=== PATIENT | female | born 1985 | race Caucasian/White ===

== ENCOUNTER → 2017-09-26 | Outpatient (CLI) | payer BC | LOC: FIMAGING 18:41 | PROVIDERS: ATTEND Physical Medicine & Rehabilitation | DX: M54.5 Low back pain (principal); R53.1 Weakness ==

== ENCOUNTER 2018-09-28 07:55 | Inpatient (IN) | payer BC ==
--- NOTE | 2018-09-28 08:00 | EDPHY ---
HPI/HX/ROS/PE/MDM Narrative: CHIEF COMPLAINT: AMS, abdominal pain, fever HPI: The patient is an anticoagulated 33 y/o female who arrives emergently via EMS from home with acute onset AMS preceded by a week of malaise, "low-grade fever," and abdominal pain. History comes primarily from due to patient' s altered mentation. She has a history of a CVA with some residual dysphasia and antiphospholipid antibody syndrome for which she is on Coumadin. She was evaluated at [facility] for abdominal pain, nausea, and vomiting on 09/23/18, 5 days ago. An adnexal US was negative at that time and an abdominal CT showed some inflammation in the right adnexa and she was given a script for hydrocodone, which helped her abdominal pain. Her INR was greater than 8 at that time and received vitamin K for this per her . 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 Her notes she's also had constipation and back pain throughout this illness and after seeing her PCP 2 days ago on Monday she tried taking a laxative. She subsequently vomited several times that day, but this resolved after treatment with an antiemetic. Symptoms remitted until yesterday afternoon when the back pain returned. She never complained of dysuria, but did mention some "bladder fullness" to her . Last night, her noticed her baseline dysphasia worsened slightly and around 02:00 this morning she woke complaining of back pain and feeling like she needed to have a bowel movement, though she did not get out of bed. He denies any obvious unilateral weakness or facial droop at this time and she did not complain of a headache. She fell asleep briefly and then woke again and "was in this weird loop" complaining of being cold and "not working" repeatedly to her . He mentions her dysphasia can worsen when she is fatigued, but he's never seen her confused like this previously. These symptoms persisted and he decided to take her to the ED, but was unable to get her up so he contacted EMS. She had difficulty following commands with both her and EMS. EMS noted her initial BP was 70/40 and she was hot and diaphoretic to the touch. They placed an IO due to difficulty obtaining IV access and she received 1L NS en route with improvement in her BP to 90 systolic. She complained of groin pain and feeling cold to EMS during transport, but generally was unable to communicate much with the crew. She currently complains of feeling cold, but is unable to contribute to history, answer questions, or follow commands. She restarted her Coumadin yesterday per . is not ill with any similar symptoms. REVIEW OF SYSTEMS: A comprehensive 10 system review of systems is otherwise negative aside from elements mentioned in the history of present illness. PMH: Stroke with some lasting dysphasia 6 years ago, hypothyroidism, antiphospholipid antibody syndrome - Coumadin. Prior medical records reviewed via [facility] including 09/23/18 visit at [facility]. SOCIAL HISTORY: . Lives in [place]. PCP: Dr. Victor. Hospitality Coordinator: Dr. Hinojosa. PHYSICAL EXAM: Vitals: HR 145, SpO2 88%, BP 98/74, 38.1C axillary temperature General:Patient is altered, difficulty following commands, moaning. ENT:Eyes are normal to inspection. ENT inspection normal. Neck: Normal inspection. Full range of motion. Respiratory:No respiratory distress. Breath sounds normal bilaterally. Cardiovascular: Tachycardic regular rate and rhythm. Strong peripheral pulses. Normal cap refill. Abdomen:The abdomen has mild diffuse tenderness to palpation, unable to localize , no severe tenderness or distension noted. There are no peritoneal signs. Back: Normal to inspection. No tenderness to palpation. Skin: Normal color. No rash. Warm and dry. Extremities: Normal appearance. Full range of motion. Neuro: Confused, difficulty following commands, movement in all extremities, face is symmetric. Unable to perform full neuro exam secondary to presentation. ED Course: 0755: Met EMS upon arrival and took report. This is an anticoagulated 33 y/o female with a history of CVA and antiphospholipid antibody syndrome who presents with a few-hour history of altered mentation in the setting of a one- week history of abdominal pain, nausea, vomiting, constipation, and fever. She is unable to follow commands on assessment, but has a patent airway and is moving all extremities. She is hypotensive, tachycardic, febrile, and hypoxemic. She has mild diffuse abdominal tenderness. Presentation is concerning for many etiologies including sepsis, major abdominal pathology, stroke, electrolyte abnormalities, and infectious causes. Plan for IV, sepsis labs, UA, flu swab, fluid resuscitation, chest and abdominal x-rays, and once able to lie still will proceed with head/chest/abdominal CTs. Will follow closely with frequent reassessments. Initial labs show normal lactate, normal pH, INR 1.4. 15mg IV Toradol ordered for fever and pain. CHEM shows hyponatremia with sodium of 120 and hypokalemia at 2.8. Will recheck for accuracy with ISTAT. WBC is normal. Hct slightly low at 37.9. 0854: Confirmed patient is hyponatremic. Remaining fluid bolus held. Nephrology paged. Chest x-ray: negative Abdominal x-ray: negative 0912: Consulted with Dr. Brown, software validation technician. She recommends no more than 2L IV NS bolus, then reducing to 200mL/hour drip. Will repeat BMP. 0914: Reevaluated patient and discussed findings with . 0925: Spoke with hospitalist service. Dr. Pedraza accepts admission. CTs pending. 0955: 0.5mg IV Ativan ordered for agitation. 1015: Repeat sodium is still 120. Lactate has improved. TSH mildly elevated. 1025: Molina placed. Patient is tachycardic 150 and her BP is now 116/55. Additional 1mg IV Ativan ordered. 1038: Head CT: nothing acute, old stroke Chest CTA: no PE, possible early pulmonary edema Abdominal CT: likely bilateral adrenal hemorrhages, right side worse than left 1047: Consulted with Dr. Pedraza and updated him on CT report. 4mg IV Decadron ordered. Critical care time spent by me, Dr. Gregory, exclusively with this patient was 60 minutes, exclusive of PA time and exclusive of procedures. The organ system at risk was multisystem. Time spent in serial assessments of the patient, discussion with patient's family, consideration of interventions, hospitalist and nephrology consultations, and review of imaging and labs. MDM: This patient presents with a complex set of signs and symptoms, concerning for sepsis, CVA, abdominal emergency and severe electrolyte imbalance. Ultimately, I think her primary issue is adrenal hemorrhage of unknown etiology, which has now resulted in adrenal insufficiency. I cannot exclude primary infectious etiology at this time, but this looks increasingly unlikely given normalizing lactate and other etiology for hypotension. She is critically ill and will require ICU care. - Data Points Imaging Results: Imaging Impressions Abdomen X-Ray 09/28/18 08:12 Impression: 1. Negative supine and upright abdominal radiographs. Chest X-Ray 09/28/18 08:13 Impression: Negative portable chest. Diminished lung volumes. Abdomen CT 09/28/18 08:58 Impression: 1. Bilateral adrenal masses as above, hyperdense, with primary differential being acute adrenal hemorrhages. This can be further followed by subsequent ultrasound, CT, or MRI. 2. Simple right renal cortical cyst. 3. Free fluid in the pelvis, likely from hydration. 4. Otherwise, normal CT scan of the abdomen and pelvis. Findings and recommendations discussed with Ric Gregory MD at 10:38 a.m. on 09/28/2018. Final report concurs with initial preliminary interpretation. Head CT 09/28/18 08:58 Impression: 1. 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 2. Old large MCA distribution left-sided stroke, new since 2012, but old now. 3. No evidence for new stroke or intracranial hemorrhage today. 4. Associated left hemispheric volume loss from that large scale stroke, resulting in a 4.5 mm right to left midline shift. Findings and recommendations discussed with Ric Gregory MD at 10:37 a.m. on 09/28/2018. Final report concurs with initial preliminary interpretation. Chest/Thorax CTA 09/28/18 09:00 Impression: 1. No pulmonary embolism. 2. Pulmonary edema with small right pleural effusion. Findings and recommendations discussed with Ric Gregory MD at 10:37 a.m. on 09/28/2018. Final report concurs with initial preliminary interpretation. Imaging: I viewed and interpreted images myself Laboratory Results: Laboratory Results 09/28/18 08:15 09/28/18 09:30 09/28/18 09/28/18 09/28/18 09:30 09:30 09:30 WBC RBC Hgb POC Hgb Hct POC Hct MCV MCH MCHC RDW Plt Count MPV Neut % (Auto) Lymph % (Auto) Gooding % (Auto) Eos % (Auto) Baso % (Auto) Nucleat RBC Rel Count Absolute Neuts (auto) Absolute Lymphs (auto) Absolute Monos (auto) Absolute Eos (auto) Absolute Basos (auto) Absolute Nucleated RBC Immature Gran % Immature Gran # PT INR APTT POC Blood Source Patient Temperature POC VBG pH POC VBG pCO2 POC VBG pO2 POC VBG HCO3 POC VBG Total CO2 POC VBG Base Excess VBG Lactic Acid 1.2 mmol/L mmol/L (0.7-2.1) POC Mix VBG O2 Sat POC FiO2 Turbidity POC Sodium Sodium 120 mEq/L L mEq/L (135-145) POC Potassium Potassium 3.0 mEq/L L mEq/L (3.5-5.2) POC Chloride Chloride 91 mEq/L L mEq/L (97-110) Carbon Dioxide 22 mEq/l mEq/l (22-31) Anion Gap 7 mEq/L mEq/L (6-14) POC BUN BUN 15 mg/dL mg/dL (7-23) Creatinine 0.9 mg/dL mg/dL (0.6-1.0) POC Creatinine Estimated GFR > 60 Glucose 67 mg/dL L mg/dL (70-100) POC Glucose Serum Osmolality POC Lactic Acid Virgilio Calcium 6.8 mg/dL L mg/dL (8.5-10.4) Magnesium Total Bilirubin Conjugated Bilirubin Unconjugated Bilirubin AST ALT Alkaline Phosphatase Total Protein Albumin Procalcitonin 1.82 ng/mL H ng/mL (0.02-0.10) TSH Beta HCG, Qual Specimen Hemolysis 102 Nasal Influenza A PCR Nasal Influenza B PCR 09/28/18 09/28/18 09/28/18 08:47 08:15 08:15 WBC RBC Hgb POC Hgb 13.6 gm/dL gm/dL (12.6-16.3) Hct POC Hct 40 % % (38-47) MCV MCH MCHC RDW Plt Count MPV Neut % (Auto) Lymph % (Auto) Gooding % (Auto) Eos % (Auto) Baso % (Auto) Nucleat RBC Rel Count Absolute Neuts (auto) Absolute Lymphs (auto) Absolute Monos (auto) Absolute Eos (auto) Absolute Basos (auto) Absolute Nucleated RBC Immature Gran % Immature Gran # PT INR APTT POC Blood Source Patient Temperature POC VBG pH POC VBG pCO2 POC VBG pO2 POC VBG HCO3 POC VBG Total CO2 POC VBG Base Excess VBG Lactic Acid POC Mix VBG O2 Sat POC FiO2 Turbidity POC Sodium 122 mEq/L L mEq/L (135-145) Sodium 120 mEq/L L mEq/L (135-145) POC Potassium 2.5 mEq/L L* mEq/L (3.3-5.0) Potassium 2.8 mEq/L L mEq/L (3.5-5.2) POC Chloride 83 mEq/L L mEq/L (97-110) Chloride 81 mEq/L L mEq/L (97-110) Carbon Dioxide 26 mEq/l mEq/l (22-31) Anion Gap 13 mEq/L mEq/L (6-14) POC BUN 13 mg/dL mg/dL (7-23) BUN 16 mg/dL mg/dL (7-23) Creatinine 1.1 mg/dL H mg/dL (0.6-1.0) POC Creatinine 1.0 mg/dL mg/dL (0.6-1.0) Estimated GFR 57 Glucose 80 mg/dL mg/dL (70-100) POC Glucose 69 mg/dL L mg/dL (70-100) Serum Osmolality POC Lactic Acid Virgilio Calcium 8.4 mg/dL L mg/dL (8.5-10.4) Magnesium Total Bilirubin 1.8 mg/dL H mg/dL (0.1-1.4) Conjugated Bilirubin 0.9 mg/dL H mg/dL (0.0-0.5) Unconjugated Bilirubin 0.9 mg/dL mg/dL (0.0-1.1) AST 116 IU/L H IU/L (14-46) ALT 53 IU/L H IU/L (9-52) Alkaline Phosphatase 110 IU/L IU/L (38-126) Total Protein 6.3 g/dL g/dL (6.3-8.2) Albumin 3.5 g/dL g/dL (3.5-5.0) Procalcitonin TSH Beta HCG, Qual Specimen Hemolysis Nasal Influenza A PCR NEGATIVE FOR FLU A (NEGATIVE) Nasal Influenza B PCR NEGATIVE FOR FLU B (NEGATIVE) 09/28/18 09/28/18 09/28/18 08:15 08:15 08:15 WBC 8.14 10^3/uL 10^3/uL (3.80-9.50) RBC 5.12 10^6/uL 10^6/uL (4.18-5.33) Hgb 12.7 g/dL g/dL (12.6-16.3) POC Hgb Hct 37.9 % L % (38.0-47.0) POC Hct MCV 74.0 fL L fL (81.5-99.8) MCH 24.8 pg L pg (27.9-34.1) MCHC 33.5 g/dL g/dL (32.4-36.7) RDW 15.0 % % (11.5-15.2) Plt Count 102 10^3/uL L 10^3/uL (150-400) MPV 10.4 fL fL (8.7-11.7) Neut % (Auto) 51.5 % % (39.3-74.2) Lymph % (Auto) 38.1 % % (15.0-45.0) Gooding % (Auto) 6.4 % % (4.5-13.0) Eos % (Auto) 1.6 % % (0.6-7.6) Baso % (Auto) 0.7 % % (0.3-1.7) Nucleat RBC Rel Count 0.0 % % (0.0-0.2) Absolute Neuts (auto) 4.19 10^3/uL 10^3/uL (1.70-6.50) Absolute Lymphs (auto) 3.10 10^3/uL H 10^3/uL (1.00-3.00) Absolute Monos (auto) 0.52 10^3/uL 10^3/uL (0.30-0.80) Absolute Eos (auto) 0.13 10^3/uL 10^3/uL (0.03-0.40) Absolute Basos (auto) 0.06 10^3/uL 10^3/uL (0.02-0.10) Absolute Nucleated RBC 0.00 10^3/uL 10^3/uL (0-0.01) Immature Gran % 1.7 % H % (0.0-1.1) Immature Gran # 0.14 10^3/uL H 10^3/uL (0.00-0.10) PT 17.4 SEC H SEC (12.0-15.0) INR 1.41 H (0.83-1.16) APTT 42.8 SEC H SEC (23.0-38.0) POC Blood Source Patient Temperature POC VBG pH POC VBG pCO2 POC VBG pO2 POC VBG HCO3 POC VBG Total CO2 POC VBG Base Excess VBG Lactic Acid 1.9 mmol/L mmol/L (0.7-2.1) POC Mix VBG O2 Sat POC FiO2 Turbidity POC Sodium Sodium POC Potassium Potassium POC Chloride Chloride Carbon Dioxide Anion Gap POC BUN BUN Creatinine POC Creatinine Estimated GFR Glucose POC Glucose Serum Osmolality POC Lactic Acid Virgilio Calcium Magnesium Total Bilirubin Conjugated Bilirubin Unconjugated Bilirubin AST ALT Alkaline Phosphatase Total Protein Albumin Procalcitonin TSH Beta HCG, Qual Specimen Hemolysis Nasal Influenza A PCR Nasal Influenza B PCR 09/28/18 09/28/18 09/28/18 08:06 08:00 08:00 WBC RBC Hgb POC Hgb Hct POC Hct MCV MCH MCHC RDW Plt Count MPV Neut % (Auto) Lymph % (Auto) Gooding % (Auto) Eos % (Auto) Baso % (Auto) Nucleat RBC Rel Count Absolute Neuts (auto) Absolute Lymphs (auto) Absolute Monos (auto) Absolute Eos (auto) Absolute Basos (auto) Absolute Nucleated RBC Immature Gran % Immature Gran # PT INR APTT POC Blood Source VENOUS Patient Temperature 38.1 DEGREES DEGREES POC VBG pH 7.41 (7.31-7.42) POC VBG pCO2 43 mmHg mmHg (40-44) POC VBG pO2 TNP POC VBG HCO3 27 mEq/L H mEq/L (22-26) POC VBG Total CO2 28 mEq/L H mEq/L (21-27) POC VBG Base Excess 3.0 mEq/L H mEq/L (-2.5-2.5) VBG Lactic Acid POC Mix VBG O2 Sat TNP POC FiO2 21.0000 % % (0-100) Turbidity POC Sodium Sodium POC Potassium Potassium POC Chloride Chloride Carbon Dioxide Anion Gap POC BUN BUN Creatinine POC Creatinine Estimated GFR Glucose POC Glucose Serum Osmolality POC Lactic Acid Virgilio 2.2 mmol/L H mmol/L (0.7-2.1) Calcium Magnesium 1.3 mg/dL L mg/dL (1.6-2.3) Total Bilirubin Conjugated Bilirubin Unconjugated Bilirubin AST ALT Alkaline Phosphatase Total Protein Albumin Procalcitonin TSH Beta HCG, Qual NEGATIVE Specimen Hemolysis Nasal Influenza A PCR Nasal Influenza B PCR 09/28/18 09/28/18 08:00 08:00 WBC RBC Hgb POC Hgb Hct POC Hct MCV MCH MCHC RDW Plt Count MPV Neut % (Auto) Lymph % (Auto) Gooding % (Auto) Eos % (Auto) Baso % (Auto) Nucleat RBC Rel Count Absolute Neuts (auto) Absolute Lymphs (auto) Absolute Monos (auto) Absolute Eos (auto) Absolute Basos (auto) Absolute Nucleated RBC Immature Gran % Immature Gran # PT INR APTT POC Blood Source Patient Temperature POC VBG pH POC VBG pCO2 POC VBG pO2 POC VBG HCO3 POC VBG Total CO2 POC VBG Base Excess VBG Lactic Acid POC Mix VBG O2 Sat POC FiO2 Turbidity Cancelled POC Sodium Sodium Cancelled POC Potassium Potassium Cancelled POC Chloride Chloride Cancelled Carbon Dioxide Cancelled Anion Gap Cancelled POC BUN BUN Cancelled Creatinine Cancelled POC Creatinine Estimated GFR Cancelled Glucose Cancelled POC Glucose Serum Osmolality 246 mosmo/kg L mosmo/kg (280-297) POC Lactic Acid Virgilio Calcium Cancelled Magnesium Total Bilirubin Conjugated Bilirubin Unconjugated Bilirubin AST ALT Alkaline Phosphatase Total Protein Albumin Procalcitonin TSH 6.270 uIU/mL H uIU/mL (0.465-4.680) Beta HCG, Qual Specimen Hemolysis Cancelled Nasal Influenza A PCR Nasal Influenza B PCR Medications Given: Sodium Chloride (Ns) 1,000 mls @ 200 mls/hr IV CONT DIANE Stop: 03/27/19 10:14 Last Admin: 09/28/18 10:06 Dose: 1,000 mls Discontinued Medications Dexamethasone (Decadron Injection) 4 mg IVP ONCE ONE Stop: 09/28/18 10:50 Last Admin: 09/28/18 10:54 Dose: 4 mg Sodium Chloride (Ns) 1,000 mls @ 0 mls/hr IV EDNOW ONE; Wide Open PRN Reason: Protocol Stop: 09/28/18 08:13 Last Admin: 09/28/18 08:18 Dose: 1,000 mls Sodium Chloride (Ns) 2,000 mls @ 4,000 mls/hr 30 ml/kg infuse over 30 min ( 2000 ml) IV EDNOW ONE PRN Reason: Protocol Stop: 09/28/18 09:08 Last Admin: 09/28/18 08:45 Dose: 1,000 mls Ketorolac Tromethamine (Toradol) 15 mg IVP EDNOW ONE Stop: 09/28/18 08:41 Last Admin: 09/28/18 08:42 Dose: 15 mg Lorazepam (Ativan Injection) 0.5 mg IVP EDNOW ONE Stop: 09/28/18 09:54 Last Admin: 09/28/18 09:54 Dose: 0.5 mg Lorazepam (Ativan Injection) 1 mg IVP EDNOW ONE Stop: 09/28/18 10:25 Last Admin: 09/28/18 10:30 Dose: 1 mg Point of Care Test Results: Chemistry 09/28/18 08:47 POC Sodium 122 mEq/L L mEq/L (135-145) POC Potassium 2.5 mEq/L L* mEq/L (3.3-5.0) POC Chloride 83 mEq/L L mEq/L (97-110) POC BUN 13 mg/dL mg/dL (7-23) POC Creatinine 1.0 mg/dL mg/dL (0.6-1.0) POC Glucose 69 mg/dL L mg/dL (70-100) Blood Gas/Lactic Acid-Arterial 09/28/18 08:06 POC Blood Source VENOUS POC FiO2 21.0000 Blood Gas/Lactic Acid-Venous 09/28/18 08:06 POC VBG pH 7.41 (7.31-7.42) POC VBG pCO2 43 mmHg mmHg (40-44) POC VBG pO2 TNP POC VBG HCO3 27 mEq/L H mEq/L (22-26) POC VBG Total CO2 28 mEq/L H mEq/L (21-27) POC VBG Base Excess 3.0 mEq/L H mEq/L (-2.5-2.5) POC Mix VBG O2 Sat TNP POC Lactic Acid Virgilio 2.2 mmol/L H mmol/L (0.7-2.1) ISTAT H&H 09/28/18 08:47 POC Hgb 13.6 gm/dL gm/dL (12.6-16.3) POC Hct 40 % % (38-47) General Initial Vital Signs: Initial Vital Signs Temperature (C) 38.1 C 09/28/18 08:01 Heart Rate 145 H 09/28/18 08:01 Respiratory Rate 38 H 09/28/18 08:01 Blood Pressure 98/74 L 09/28/18 08:01 O2 Sat (%) 90 L 09/28/18 08:01 O2 Delivery Mode Nasal Cannula O2 (L/minute) 2 Allergies/Adverse Reactions: No Known Allergies Allergy (Verified 07/24/13 08:35) Home Medications: Medication Instructions Recorded Warfarin Sodium [Coumadin 5MG (RX)] 5 mg PO DAILY16 04/03/13 Hydrocodone/APAP 5/325 [[place] 1 tab PO ONCE 09/28/18 5/325 (*)] Levothyroxine [Synthroid 112 mcg 112 mcg PO DAILY06 09/28/18 (*)] Ondansetron [Ondansetron Odt] 4 mg PO Q4 PRN 09/28/18 Sennosides [Senokot] 17.2 mg PO BID 09/28/18 Departure - Departure Disposition: [facility] Inpatient Acute Clinical Impression: Adrenal hemorrhage, Hyponatremia, Tachycardia, Adrenal insufficiency Hypotension Qualifiers: Hypotension type: unspecified hypotension type Qualified Code(s): I95.9 - Hypotension, unspecified Condition: Serious Report Scribed for: Ric Gregory Report Scribed by: Marie Salmeron Date of Report: 09/28/18 Time of Report: 09:24 Physician Review and Approval Statement: Portions of this note were transcribed by an ED scribe. I personally performed the history, physical exam, and medical decision making; and confirm the accuracy of the information in the transcribed note.
[2018-09-28] MEDS ORDERED: NS 1,000 ML IV ONE (08:12)
[2018-09-28 08:29] LABS: PLATELET COUNT 102 10^3/uL (150-400)
[2018-09-28 08:35] LABS: INR 1.41 (0.83-1.16); PROTIME(PATIENT) 17.4 SEC (12.0-15.0)
[2018-09-28] MEDS ORDERED: NS 2,000 ML IV ONE (08:39)
[2018-09-28] MEDS ORDERED: KETOROLAC 15 MG/1 ML SDV IVP ONE (08:40)
[2018-09-28] MEDS ORDERED: IOPAMIDOL (ISOVUE 370) 75 ML BTL IV ONE (09:27)
[2018-09-28] MEDS ORDERED: LORazepam 2 MG/ML INJ ONE (09:35)
[2018-09-28] MEDS ORDERED: LORazepam 2 MG/ML INJ IVP ONE ×2 (09:53→10:24)
[2018-09-28] MEDS: NS 1,000 ML IV SCH ×2 (10:06→17:29)
[2018-09-28] MEDS ORDERED: NS 1,000 ML IV SCH ×2 (10:15→18:00)
[2018-09-28] MEDS ORDERED: DEXAMETHASONE 4 MG/ML VIAL IVP ONE (10:49)
[2018-09-28] MEDS ORDERED: DEXAMETHASONE 4 MG/ML VIAL ONE (10:52)
--- NOTE | 2018-09-28 11:48 | PDCONSULT ---
Epic Anesthesia Analyst Note: Assessment/Plan: Hyponatremia: Na 120, looks dry, but urine studies more consistent with increased ADH release, which may be happening in setting of pain and illness. - Pt has received 3L NS so far. - Will check BMP q4h for now. - Would place on fluid restriction of 1L when allowing PO intake. - Will continue to monitor closely. PADMINI: Cr up to 1.1 on presentation, down to 0.9 with IVFs, will continue to monitor. Hypokalemia: K 3.0, will replace and continue to monitor. Thank you for the interesting consult. Nephrology will continue to follow, please call if you have any additional questions or concerns. H & P Stated Complaint: ams, possible sepsis. Time Seen by Provider: 09/28/18 07:58 HPI/ROS: HPI: Ms. Alvarez is a 33 yo F with h/o antiphospholipid ab and hypothyroidism who presented to ER with confusion and abdominal pain. Pt is sedated now and very confused, history obtained from . She has had abdominal pain since last , was seen last weekend at two different ERs for this, had imaging that reportedly showed nothing, also had labs done that showed INR high at 8.0 ( she is on warfarin at home) but otherwise states labs were fine. She was given pain meds to go home with, abdominal pain improved but she was having N/V, poor oral intake. Her vomiting improved yesterday with an antinausea medication. She also had been taking laxatives this week as she had not had a BM. Yesterday evening she started to have the abdominal pain again, and became more aphasic, which is a residual problem from her stroke but was much worse yesterday. This am she was very confused so came to ER. She was noted to be hypotensive, got 3L NS total. Her sodium noted to be 120, was still 120 after 2L NS. ROS: unable to obtain 2/2 clinical condition - Personal History Current Tetanus Diphtheria and Acellular Pertussis (TDAP): Unsure - Medical/Surgical History Other PMH: CVA. Antiphospholipid ab. hypothyroidism - Family History Significant Family History: No pertinent family hx - Social History Smoking Status: Unknown if ever smoked - Physical Exam Exam: General: sedated, no acute distress Eyes: EOMI, PERRL OP: Clear, dry MM Neck: supple, no thyromegaly CV: tachycardic, no murmur or rub Resp: CTA bilat, nonlabored respirations Abd: Soft, nondistended Ext: no edema BLE Neuro: CN II-XII Grossly intact, no asterixis Skin: C/D/I, no rash Constitutional: Initial Vital Signs Temperature (C) 38.1 C 09/28/18 08:01 Heart Rate 145 H 09/28/18 08:01 Respiratory Rate 38 H 09/28/18 08:01 Blood Pressure 98/74 L 09/28/18 08:01 O2 Sat (%) 90 L 09/28/18 08:01 O2 Delivery Mode Nasal Cannula O2 (L/minute) 2 Allergies/Adverse Reactions: No Known Allergies Allergy (Verified 04/03/13 08:35) Home Medications: Medication Instructions Recorded Warfarin Sodium [Coumadin 5MG (RX)] 5 mg PO DAILY16 04/03/13 Hydrocodone/APAP 5/325 [[place] 1 tab PO ONCE 09/28/18 5/325 (*)] Levothyroxine [Synthroid 112 mcg 112 mcg PO DAILY06 09/28/18 (*)] Ondansetron [Ondansetron Odt] 4 mg PO Q4 PRN 09/28/18 Sennosides [Senokot] 17.2 mg PO BID 09/28/18 Lab and Imaging 09/28/18 08:15 09/28/18 09:30 WBC 8.14 10^3/uL (3.80-9.50) 09/28/18 08:15 RBC 5.12 10^6/uL (4.18-5.33) 09/28/18 08:15 Hgb 12.7 g/dL (12.6-16.3) 09/28/18 08:15 POC Hgb 13.6 gm/dL (12.6-16.3) 09/28/18 08:47 Hct 37.9 % (38.0-47.0) L 09/28/18 08:15 POC Hct 40 % (38-47) 09/28/18 08:47 MCV 74.0 fL (81.5-99.8) L 09/28/18 08:15 MCH 24.8 pg (27.9-34.1) L 09/28/18 08:15 MCHC 33.5 g/dL (32.4-36.7) 09/28/18 08:15 RDW 15.0 % (11.5-15.2) 09/28/18 08:15 Plt Count 102 10^3/uL (150-400) L 09/28/18 08:15 MPV 10.4 fL (8.7-11.7) 09/28/18 08:15 Neut % (Auto) 51.5 % (39.3-74.2) 09/28/18 08:15 Lymph % (Auto) 38.1 % (15.0-45.0) 09/28/18 08:15 [place] % (Auto) 6.4 % (4.5-13.0) 09/28/18 08:15 Eos % (Auto) 1.6 % (0.6-7.6) 09/28/18 08:15 Baso % (Auto) 0.7 % (0.3-1.7) 09/28/18 08:15 Nucleat RBC Rel Count 0.0 % (0.0-0.2) 09/28/18 08:15 Absolute Neuts (auto) 4.19 10^3/uL (1.70-6.50) 09/28/18 08:15 Absolute Lymphs (auto) 3.10 10^3/uL (1.00-3.00) H 09/28/18 08:15 Absolute Monos (auto) 0.52 10^3/uL (0.30-0.80) 09/28/18 08:15 Absolute Eos (auto) 0.13 10^3/uL (0.03-0.40) 09/28/18 08:15 Absolute Basos (auto) 0.06 10^3/uL (0.02-0.10) 09/28/18 08:15 Absolute Nucleated RBC 0.00 10^3/uL (0-0.01) 09/28/18 08:15 Immature Gran % 1.7 % (0.0-1.1) H 09/28/18 08:15 Immature Gran # 0.14 10^3/uL (0.00-0.10) H 09/28/18 08:15 PT 17.4 SEC (12.0-15.0) H 09/28/18 08:15 INR 1.41 (0.83-1.16) H 09/28/18 08:15 APTT 42.8 SEC (23.0-38.0) H 09/28/18 08:15 POC Blood Source VENOUS 09/28/18 08:06 Patient Temperature 38.1 DEGREES 09/28/18 08:06 POC VBG pH 7.41 (7.31-7.42) 09/28/18 08:06 POC VBG pCO2 43 mmHg (40-44) 09/28/18 08:06 POC VBG pO2 TNP 09/28/18 08:06 POC VBG HCO3 27 mEq/L (22-26) H 09/28/18 08:06 POC VBG Total CO2 28 mEq/L (21-27) H 09/28/18 08:06 POC VBG Base Excess 3.0 mEq/L (-2.5-2.5) H 09/28/18 08:06 VBG Lactic Acid 1.2 mmol/L (0.7-2.1) 09/28/18 09:30 POC Mix VBG O2 Sat TNP 09/28/18 08:06 POC FiO2 21.0000 % (0-100) 09/28/18 08:06 Turbidity Cancelled 09/28/18 08:00 POC Sodium 122 mEq/L (135-145) L 09/28/18 08:47 Sodium 120 mEq/L (135-145) L 09/28/18 09:30 POC Potassium 2.5 mEq/L (3.3-5.0) L* 09/28/18 08:47 Potassium 3.0 mEq/L (3.5-5.2) L 09/28/18 09:30 POC Chloride 83 mEq/L (97-110) L 09/28/18 08:47 Chloride 91 mEq/L (97-110) L 09/28/18 09:30 Carbon Dioxide 22 mEq/l (22-31) 09/28/18 09:30 Anion Gap 7 mEq/L (6-14) 09/28/18 09:30 POC BUN 13 mg/dL (7-23) 09/28/18 08:47 BUN 15 mg/dL (7-23) 09/28/18 09:30 Creatinine 0.9 mg/dL (0.6-1.0) 09/28/18 09:30 POC Creatinine 1.0 mg/dL (0.6-1.0) 09/28/18 08:47 Estimated GFR > 60 09/28/18 09:30 Glucose 67 mg/dL (70-100) L 09/28/18 09:30 POC Glucose 69 mg/dL (70-100) L 09/28/18 08:47 Serum Osmolality 246 mosmo/kg (280-297) L 09/28/18 08:00 POC Lactic Acid [place] 2.2 mmol/L (0.7-2.1) H 09/28/18 08:06 Calcium 6.8 mg/dL (8.5-10.4) L 09/28/18 09:30 Magnesium 1.3 mg/dL (1.6-2.3) L 09/28/18 08:00 Total Bilirubin 1.8 mg/dL (0.1-1.4) H 09/28/18 08:15 Conjugated Bilirubin 0.9 mg/dL (0.0-0.5) H 09/28/18 08:15 Unconjugated Bilirubin 0.9 mg/dL (0.0-1.1) 09/28/18 08:15 AST 116 IU/L (14-46) H 09/28/18 08:15 ALT 53 IU/L (9-52) H 09/28/18 08:15 Alkaline Phosphatase 110 IU/L (38-126) 09/28/18 08:15 Total Protein 6.3 g/dL (6.3-8.2) 09/28/18 08:15 Albumin 3.5 g/dL (3.5-5.0) 09/28/18 08:15 Procalcitonin 1.82 ng/mL (0.02-0.10) H 09/28/18 09:30 TSH 6.270 uIU/mL (0.465-4.680) H 09/28/18 08:00 Beta HCG, Qual NEGATIVE 09/28/18 08:00 Specimen Hemolysis 102 09/28/18 09:30 Urine Color GE 09/28/18 10:25 Urine Appearance HAZY 09/28/18 10:25 Urine pH 6.0 (5.0-7.5) 09/28/18 10:25 Ur Specific [place] 1.031 (1.002-1.030) H 09/28/18 10:25 Urine Protein 3+ (NEGATIVE) H 09/28/18 10:25 Urine Ketones NEGATIVE (NEGATIVE) 09/28/18 10:25 Urine Blood 2+ (NEGATIVE) H 09/28/18 10:25 Urine Nitrate NEGATIVE (NEGATIVE) 09/28/18 10:25 Urine Bilirubin NEGATIVE (NEGATIVE) 09/28/18 10:25 Urine Urobilinogen 4.0 EU (0.2-1.0) H 09/28/18 10:25 Ur Leukocyte Esterase NEGATIVE (NEGATIVE) 09/28/18 10:25 Urine RBC 50-182 /hpf (0-3) H 09/28/18 10:25 Urine WBC 1-3 /hpf (0-3) 09/28/18 10:25 Ur Epithelial Cells TRACE /lpf (NONE-1+) 09/28/18 10:25 Urine Bacteria TRACE /hpf (NONE SEEN) H 09/28/18 10:25 Hyaline Casts 5-15 /lpf (0-1) 09/28/18 10:25 Urine Mucus 1+ /lpf (NONE-1+) 09/28/18 10:25 Urine Osmolality 716 mosmo/kg (300-900) 09/28/18 10:25 Ur Random Sodium 50 mEq/L (30-90) 09/28/18 10:25 Urine Glucose 1+ (NEGATIVE) H 09/28/18 10:25 Nasal Influenza A PCR NEGATIVE FOR FLU A (NEGATIVE) 09/28/18 08:15 Nasal Influenza B PCR NEGATIVE FOR FLU B (NEGATIVE) 09/28/18 08:15
[2018-09-28] MEDS ORDERED: ALTEPLASE 2 MG VIAL IVP PRN (12:00)
[2018-09-28] MEDS: PIPERACILLIN/TAZO 4.5 GM/DEX 100 ML IV SCH ×3 (12:14→23:37)
[2018-09-28] MEDS: POTASSIUM Cl (KCl) 100 ML IV SCH ×3 (12:17→15:04)
--- NOTE | 2018-09-28 12:26 | PDGENHP ---
History and Physical - Chief Complaint ams - History of Present Illness 33 yo female with Antiphospholipid antibody syndrome on coumadin p/w AMS, abd pain, and fever. The pt has AMS and hx is from the , ER Physician, and medical record. She was evaluated at [facility] for abdominal pain, nausea, and vomiting on 09/23/18, 5 days ago. An adnexal US was negative at that time and an abdominal CT showed some inflammation in the right adnexa and she was given a script for hydrocodone, which helped her abdominal pain and was discharged. Per report, her INR was greater than 8 at that time and received vitamin K. At a follow up appointment with her senior visual designer 3 days ago it had returned to 1.5. Last night, her noticed her baseline dysphasia worsened slightly and around 02:00 this morning she woke complaining of back pain. She developed AMS and EMS was called. EMS noted her initial BP was 70/40 and she was hot and diaphoretic to the touch. In the ER she is noted to be hypotensive, Low Na, Low K, tachycardic, and febrile. She was given an additional 1 L of NS and Nephrology was consulted. Currently NS is running at 200ml/hr. Na has kept around 120. CT imaging shows Bilateral adrenal masses possible adrenal hemorrhages and there is concern for acute adrenal insufficiency CT brain does not show new CVA CT does not show PE She does not have Leukocytosis REVIEW OF SYSTEMS: unable to obtain. PMH: Stroke with some lasting dysphasia 6 years ago, hypothyroidism, antiphospholipid antibody syndrome - Coumadin. SOCIAL HISTORY: . Lives in [place]. PCP: Dr. Victor. Cylinder Grinder: Dr. Hinojosa. FMHx: non contributory History Information - Allergies/Home Medication List Allergies/Adverse Reactions: No Known Allergies Allergy (Verified 04/03/13 08:35) Home Medications: Warfarin Sodium [Coumadin 5MG (RX)] 5 mg PO DAILY16 04/03/13 [Last Taken ] Hydrocodone/APAP 5/325 [[place] 5/325 (*)] 1 tab PO ONCE 09/28/18 [Last Taken ] Levothyroxine [Synthroid 112 mcg (*)] 112 mcg PO DAILY06 09/28/18 [Last Taken ] Ondansetron [Ondansetron Odt] 4 mg PO Q4 PRN 09/28/18 [Last Taken 09/27/18 5 DOSES] Sennosides [Senokot] 17.2 mg PO BID 09/28/18 [Last Taken 09/27/18] I have personally reviewed and updated: medical history, social history - Social History Smoking Status: Unknown if ever smoked Review of Systems Review of Systems: Physical Exam Physical Exam: Temp Pulse Resp BP Pulse Ox 38.1 C 128 H 30 H 107/75 99 09/28/18 11:59 09/28/18 11:59 09/28/18 11:59 09/28/18 11:59 09/28/18 11:59 O2 (L/minute) 2 Eyes: PERRL, EOMI Ears, Nose, Mouth, Throat: dry mucous membranes Cardiovascular: tachycardia, No edema Respiratory: no respiratory distress, no rales or rhonchi, clear to auscultation Gastrointestinal: normoactive bowel sounds, no palpable masses, No tenderness, No guarding, No distension Skin: warm Neurologic: No AAOx3 Psychiatric: encephalopathic Lymph, Heme, Immunologic: No petechiae Lab Data & Imaging Review 09/28/18 08:15 09/28/18 11:45 WBC 8.14 10^3/uL (3.80-9.50) 09/28/18 08:15 RBC 5.12 10^6/uL (4.18-5.33) 09/28/18 08:15 Hgb 12.7 g/dL (12.6-16.3) 09/28/18 08:15 POC Hgb 13.6 gm/dL (12.6-16.3) 09/28/18 08:47 Hct 37.9 % (38.0-47.0) L 09/28/18 08:15 POC Hct 40 % (38-47) 09/28/18 08:47 MCV 74.0 fL (81.5-99.8) L 09/28/18 08:15 MCH 24.8 pg (27.9-34.1) L 09/28/18 08:15 MCHC 33.5 g/dL (32.4-36.7) 09/28/18 08:15 RDW 15.0 % (11.5-15.2) 09/28/18 08:15 Plt Count 102 10^3/uL (150-400) L 09/28/18 08:15 MPV 10.4 fL (8.7-11.7) 09/28/18 08:15 Neut % (Auto) 51.5 % (39.3-74.2) 09/28/18 08:15 Lymph % (Auto) 38.1 % (15.0-45.0) 09/28/18 08:15 [place] % (Auto) 6.4 % (4.5-13.0) 09/28/18 08:15 Eos % (Auto) 1.6 % (0.6-7.6) 09/28/18 08:15 Baso % (Auto) 0.7 % (0.3-1.7) 09/28/18 08:15 Nucleat RBC Rel Count 0.0 % (0.0-0.2) 09/28/18 08:15 Absolute Neuts (auto) 4.19 10^3/uL (1.70-6.50) 09/28/18 08:15 Absolute Lymphs (auto) 3.10 10^3/uL (1.00-3.00) H 09/28/18 08:15 Absolute Monos (auto) 0.52 10^3/uL (0.30-0.80) 09/28/18 08:15 Absolute Eos (auto) 0.13 10^3/uL (0.03-0.40) 09/28/18 08:15 Absolute Basos (auto) 0.06 10^3/uL (0.02-0.10) 09/28/18 08:15 Absolute Nucleated RBC 0.00 10^3/uL (0-0.01) 09/28/18 08:15 Immature Gran % 1.7 % (0.0-1.1) H 09/28/18 08:15 Immature Gran # 0.14 10^3/uL (0.00-0.10) H 09/28/18 08:15 PT 17.4 SEC (12.0-15.0) H 09/28/18 08:15 INR 1.41 (0.83-1.16) H 09/28/18 08:15 APTT 42.8 SEC (23.0-38.0) H 09/28/18 08:15 POC Blood Source VENOUS 09/28/18 08:06 Patient Temperature 38.1 DEGREES 09/28/18 08:06 POC VBG pH 7.41 (7.31-7.42) 09/28/18 08:06 POC VBG pCO2 43 mmHg (40-44) 09/28/18 08:06 POC VBG pO2 TNP 09/28/18 08:06 POC VBG HCO3 27 mEq/L (22-26) H 09/28/18 08:06 POC VBG Total CO2 28 mEq/L (21-27) H 09/28/18 08:06 POC VBG Base Excess 3.0 mEq/L (-2.5-2.5) H 09/28/18 08:06 VBG Lactic Acid 1.2 mmol/L (0.7-2.1) 09/28/18 09:30 POC Mix VBG O2 Sat TNP 09/28/18 08:06 POC FiO2 21.0000 % (0-100) 09/28/18 08:06 Turbidity Cancelled 09/28/18 08:00 POC Sodium 122 mEq/L (135-145) L 09/28/18 08:47 Sodium 120 mEq/L (135-145) L 09/28/18 11:45 POC Potassium 2.5 mEq/L (3.3-5.0) L* 09/28/18 08:47 Potassium 3.1 mEq/L (3.5-5.2) L 09/28/18 11:45 POC Chloride 83 mEq/L (97-110) L 09/28/18 08:47 Chloride 91 mEq/L (97-110) L 09/28/18 11:45 Carbon Dioxide 23 mEq/l (22-31) 09/28/18 11:45 Anion Gap 6 mEq/L (6-14) 09/28/18 11:45 POC BUN 13 mg/dL (7-23) 09/28/18 08:47 BUN 15 mg/dL (7-23) 09/28/18 11:45 Creatinine 1.0 mg/dL (0.6-1.0) 09/28/18 11:45 POC Creatinine 1.0 mg/dL (0.6-1.0) 09/28/18 08:47 Estimated GFR > 60 09/28/18 11:45 Glucose 73 mg/dL (70-100) 09/28/18 11:45 POC Glucose 69 mg/dL (70-100) L 09/28/18 08:47 Serum Osmolality 246 mosmo/kg (280-297) L 09/28/18 08:00 POC Lactic Acid [place] 2.2 mmol/L (0.7-2.1) H 09/28/18 08:06 Calcium 6.6 mg/dL (8.5-10.4) L 09/28/18 11:45 Ionized Calcium 0.95 MMOL/L (1.12-1.30) L 09/28/18 11:45 Magnesium 1.3 mg/dL (1.6-2.3) L 09/28/18 08:00 Total Bilirubin 1.8 mg/dL (0.1-1.4) H 09/28/18 08:15 Conjugated Bilirubin 0.9 mg/dL (0.0-0.5) H 09/28/18 08:15 Unconjugated Bilirubin 0.9 mg/dL (0.0-1.1) 09/28/18 08:15 AST 116 IU/L (14-46) H 09/28/18 08:15 ALT 53 IU/L (9-52) H 09/28/18 08:15 Alkaline Phosphatase 110 IU/L (38-126) 09/28/18 08:15 Total Protein 6.3 g/dL (6.3-8.2) 09/28/18 08:15 Albumin 3.5 g/dL (3.5-5.0) 09/28/18 08:15 Procalcitonin 1.82 ng/mL (0.02-0.10) H 09/28/18 09:30 TSH 6.270 uIU/mL (0.465-4.680) H 09/28/18 08:00 Beta HCG, Qual NEGATIVE 09/28/18 08:00 Specimen Hemolysis 102 09/28/18 09:30 Urine Color GE 09/28/18 10:25 Urine Appearance HAZY 09/28/18 10:25 Urine pH 6.0 (5.0-7.5) 09/28/18 10:25 Ur Specific [place] 1.031 (1.002-1.030) H 09/28/18 10:25 Urine Protein 3+ (NEGATIVE) H 09/28/18 10:25 Urine Ketones NEGATIVE (NEGATIVE) 09/28/18 10:25 Urine Blood 2+ (NEGATIVE) H 09/28/18 10:25 Urine Nitrate NEGATIVE (NEGATIVE) 09/28/18 10:25 Urine Bilirubin NEGATIVE (NEGATIVE) 09/28/18 10:25 Urine Urobilinogen 4.0 EU (0.2-1.0) H 09/28/18 10:25 Ur Leukocyte Esterase NEGATIVE (NEGATIVE) 09/28/18 10:25 Urine RBC 50-182 /hpf (0-3) H 09/28/18 10:25 Urine WBC 1-3 /hpf (0-3) 09/28/18 10:25 Ur Epithelial Cells TRACE /lpf (NONE-1+) 09/28/18 10:25 Urine Bacteria TRACE /hpf (NONE SEEN) H 09/28/18 10:25 Hyaline Casts 5-15 /lpf (0-1) 09/28/18 10:25 Urine Mucus 1+ /lpf (NONE-1+) 09/28/18 10:25 Urine Osmolality 716 mosmo/kg (300-900) 09/28/18 10:25 Ur Random Sodium 50 mEq/L (30-90) 09/28/18 10:25 Urine Glucose 1+ (NEGATIVE) H 09/28/18 10:25 Nasal Influenza A PCR NEGATIVE FOR FLU A (NEGATIVE) 09/28/18 08:15 Nasal Influenza B PCR NEGATIVE FOR FLU B (NEGATIVE) 09/28/18 08:15 Assessment & Plan Assessment: #Acute Encephalopathy, metabolic #Possible Sepsis, Fever, no leukocytosis, tachycardia, hypotension #Adrenal Insufficiency #Adrenal Hemorrhage, no e/o anemia. #Hyponatremia, looks dry #Hypotension #tachycardia due to volume deficit #Hx of Antiphospholipid antibody syndrome on chronic AC with Warfarin #Abd Pain #Hx of CVA, no e/o of acute #Hypokalemia #PADMINI, resolved with IVF #Thrombocytopenia, mild #Hypocalcemia Plan: ICU admission IVF, will need to monitor closely serial BMP, currently Na at 120, repeat pending Nephrology following Steroids Zosyn, source unclear. Await infectious w/u Central line placement/PICC hopefully can avoid pressors Recheck stat H/H. Did not have anemia on presentation. Will review imaging with IR. Hold AC Total Critical care time is 65 minutes in this pt with acute hypotension, encephalopathy, requiring ICU care. Further reccs pending w/u and clinical course
[2018-09-28] MEDS ORDERED: ONDANSETRON 4 MG/2 ML VIAL IVP PRN (12:39)
[2018-09-28] MEDS ORDERED: ONDANSETRON DISINTEGRATING 4 MG TAB PO PRN (12:39)
[2018-09-28] MEDS ORDERED: ACETAMINOPHEN 325 MG TAB PO PRN (12:39)
[2018-09-28] MEDS ORDERED: VASOPRESSIN 25 UNIT in NS 250 ML IV SCH (12:45)
[2018-09-28] MEDS ORDERED: PROTOCOL POTASSIUM 1 DOSE MISC PRN (12:50)
[2018-09-28] MEDS ORDERED: PROTOCOL CALCIUM 1 DOSE IV PRN (12:50)
[2018-09-28] MEDS ORDERED: PROTOCOL MAGNESIUM 1 DOSE IV PRN (12:50)
[2018-09-28] MEDS ORDERED: MAGNESIUM SULF 2 GM/WATER 50 ML IV ONE (12:54)
[2018-09-28] MEDS ORDERED: CALCIUM GLUCONATE 50 ML IV ONE (12:54)
[2018-09-28] MEDS ORDERED: PHENYLEPHRINE HCL 50 MG in D5W 250 ML IV SCH (13:00)
[2018-09-28] MEDS ORDERED: DOBUTamine/DEXTROSE 250 ML IV SCH (13:00)
[2018-09-28] MEDS ORDERED: CALCIUM GLUCONATE 1 GM in D5W 50 ML IV ONE (13:00)
[2018-09-28] MEDS: LORazepam 2 MG/ML INJ IVP PRN (13:27)
--- NOTE | 2018-09-28 14:03 | PDMN ---
Medical Necessity Medical necessity: Pt meets inpt criteria per MD order and MCG M-05, Abdominal Pain, Undiagnosed. 33 y/o w/hx of antiphospholipid antibody syndrome and hypothyroidism and hx CVA presented to ER w/abdominal pain, fever, and confusion admitted w/ acute metabolic encephalopathy, possible sepsis, adrenal insufficiency, adrenal hemorrhage, hypotension and tachycardia, severe electrolyte abnormalities: K 2.5, Na 120. ICU monitoring, serial BMP, nephrology following, IVF, central line/PICC placement, bl cultures pending. Est LOS>2MN for ongoing eval/management of above.
[2018-09-28] MEDS: NOREPINEPHRINE BITARTRATE 4 MG in NS 500 ML IV SCH ×2 (14:21→20:43)
[2018-09-28] MEDS: HYDROCORTISONE 100 MG/2 ML VIAL IVP SCH ×2 (14:22→22:10)
--- NOTE | 2018-09-28 17:18 | GCON ---
CRITICAL-CARE CONSULTATION. DATE OF CONSULTATION: 09/28/2018 HISTORY OF PRESENT ILLNESS: This patient is a 33-year-old female with a known antiphospholipid antib macey syndrome who had her 1st stroke in 2012, an extension of stroke in 2014 and has been on lifelong warfarin since that time. On 09/23/2018, she presented to [facility] Emergency Department complaining of right upper quadrant pain for several days with nausea. A CT at that time showed some stranding and was thought to be consistent with an ovarian cyst rupture and she was given hydrocodone for this. A t that time, her INR was greater than 8 (with 8 being the upper limit of their assay) and was not tho ught to be bleeding, so she was given vitamin K and discharged home. She was subsequently seen by Dr Regina Hinojosa who apparently rechecked the INR and it was 1.5 at that time. On the , she saw her [facility] care physician again complaining of abdominal pain, nausea and vomiting. Was given Zofran which h elped some. However, in the physiognomist today around 2 a.m., she woke with some significant back p ain and continued to have mental status changes, so her called EMS. On arrival, blood pressu re was 70/40, so they brought her to the emergency department after giving her a liter of fluid. She was somewhat agitated there and required some Ativan. She was found to have a sodium of 120, and un derwent an extensive workup including chest, abdomen, pelvis and head CTs. The abdominal CT however showed bilateral adrenal hemorrhaging, right greater than left. She did have a T-max of 38 and multi ple other metabolic abnormalities, but continued to get IV fluids. Renal was consulted and suggested no more than 2-3 L of fluids and then fluid restriction to correct her sodium. She was started on L evophed after central line placement and brought to the intensive care unit. She had additional agit ation in the ICU, was given more Ativan shortly before my arrival, so was unable to provide any histo ry. Therefore most of mine came from the chart. REVIEW OF SYSTEMS: Based again on chart history, there was no cough or sputum production. No headac he that I was aware of. No neck pain. No dysuria or lack of urine output, and no recent sick contac ts. 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 Otherwise review of systems as stated in the HPI. PAST MEDICAL HISTORY: 1. Includes antiphospholipid syndrome. 2. Stroke in 2013, as well as 2015 with dysphagia as a result. 3. Hypothyroidism. 4. Mitral regurgitation. 5. Small patent foramina ovale. 6. At 1 time, positive LENORA, although I am not sure if that is still true. 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 8. Hyperlipidemia. PAST SURGICAL HISTORY: Only wisdom teeth extraction. SOCIAL HISTORY: She is a nonsmoker. No alcohol or IV drug use. FAMILY HISTORY: Noncontributory at this time. CURRENT MEDICATIONS: Include Tylenol, calcium gluconate, hydrocortisone 100 mg IV q.8 hours, Ativan p.r.n., Levophed, Zofran, Zosyn, normal saline. PHYSICAL EXAM: VITAL SIGNS: T-max of 38.5 since the emergency department, currently 38.1, blood pres sure now 104/60 with a MAP of 70, heart rate of 115, sinus rhythm, respirations 26, oxygen saturation 96% on 2 L. GENERAL: She was lying in bed, overweight and largely unresponsive, although I did not attempt any noxious stimuli. HEENT: Pupils equally round and reactive to light, nonicteric and abby njected. Mucous membranes were dry. NECK: Supple without adenopathy or jugular vein distention. ELISA NGS: Clear to auscultation bilaterally without wheezes, rubs or rales. HEART: Regular rate and rhyt hm without obvious murmur. ABDOMEN: Tender in the right upper and lower quadrants without guarding, but generally soft. No rigidity and no rebound. Bowel tones were hypoactive. EXTREMITIES: Showed no clubbing, cyanosis, or edema. SKIN: Warm and dry without evidence of rash. NEUROLOGIC: Exam was nonfocal with the exception of the somnolence as described above. OBJECTIVE DATA: Includes a white count of 8.14, hematocrit 37.9, platelets of 102. INR was 1.41. V enous pH 7.41, sodium 120, potassium 3.1, chloride 91, bicarb 23, anion gap 6, BUN 15, creatinine 1.0 , glucose as low as 67, but about 73, calcium 6.6. Lactic acid 2.2. Serum osm is 246. Total biliru bin 1.8, AST 116, ALT 53, alkaline phosphatase 110, albumin 3.5, procalcitonin 1.82, TSH 6.2. Beta H CG negative. Urinalysis showed 3+ protein, 2+ blood, but leukocyte esterase negative, white cells ne gative. Urine osmoles 716. Urine sodium 50. Nasal swab negative for flu A and B. Blood cultures ne gative. CT scans as described above. ASSESSMENT AND PLAN: 1. Shock which I believe is secondary to adrenal insufficiency. The presence of the antiphospholipi d syndrome as well as ongoing anticoagulation is consistent with this problem, even though INR is 1.4 , I suspect that she probably had a thrombotic event followed by hemorrhaging. This was not evident on the CT scan from [facility], though professional radiographic comparison would be important to know. In any case, I think her symptom manifestation fits with this quite well and hydrocortisone is certai nly the appropriate medication to give her. We may also consider Florinef depending how her clinical course proceeds. The possibility of sepsis is also present. She did have a fever. There is certai nly a low level lactic acidosis and a procalcitonin level is approaching 2. I do not have an obvious source for infection in her, but I think Zosyn is a reasonable place to start. We will follow up wi th her cultures and see if anything grows. She also needs a troponin and EKG. Another remote possib ility would be involvement of her mitral valve, which was thought to have Libman Sacks endocarditis i n the distant past. I think we should wait on the echocardiogram for now depending on her clinical c ourse. 2. Hyponatremia. This is also related to her adrenal insufficiency and a syndrome of inappropriate antidiuretic hormone picture. Renal is already involved and will be quite useful. I agree with flui d restriction at this point, hopefully that will improve. 3. Antiphospholipid syndrome. With evidence of adrenal hemorrhage, I would be hesitant to resume her anticoagulation at this time. I will confer with the rest of our team to determine the appropriate timing for that. In addition, she should get SCDs certainly to prevent thromboembolic disease and ob viously would like to restart anticoagulation as soon as possible. We will likely confer with Hemato logjennifer for guidance on this issue. 4. Transaminitis. I think this is likely due to shock and simply follow these. A total of about 75 minutes of critical care time was required in the evaluation of this patient. /[id number]/MODL
[2018-09-28 18:39] LABS: CREATINE KINASE 506 IU/L (0-156)
--- NOTE | 2018-09-28 21:08 | HOSPPROG ---
Hospitalist Progress Note Assessment/Plan: CRITICAL CARE NOTE TOTAL GREATER THAN 45 MIN CRITICAL CARE TIME SPENT AT BEDSIDE AND IN CARE COORDINATION/CONSULTATION WITH DR. JOCELYNE SANTANA Called for abnormal troponin of 19 I reviewed the records including the consultation note with Dr. Garcia in the admission note from Dr. Pedraza I reviewed results of her imaging studies and I have personally reviewed the images from her CT chest and chest x-ray earlier today I reviewed all of her labs This patient who comes in wound with shock, adrenal hemorrhages, alveolar infiltrates, liver enzyme elevations, was felt to have likely adrenal hemorrhages causing adrenal insufficiency and she has responded to fluids and steroid. She does remain tachycardic at 110 and is still tachypneic but blood pressures are better. No fever. Still requiring oxygen. However a troponin was ordered this afternoon it comes back elevated at 19. Patient's pain has improve and her vital signs have improved. I looked at her EKG done this afternoon and it does look nonischemic. When I review her CT chest I do see alveolar infiltrates suggestive of edema but I could not rule out the possibility that these are due to ARDS or an inflammatory illness as opposed to CHF. I ordered a CPK which comes back elevated at 500 with a 10.8 % myocardial CK I reviewed her case in detail with Dr. Clement Santana. It is possible that she has acute myocardial infarction from hypotension or primary coronary event or other cause. With adrenal hemorrhage it is risky to give her aspirin or anticoagulant medicines. It would be risky to go to angiography where we might have to give her multiple medications to increased risk of hemorrhage. We elected to go with stat echocardiogram as our next point of assessment and this is been done and shows inferior lateral wall motion abnormality, as well as ejection fraction reduced at 45%. Reviewing with Dr. Santana it does not seem likely that her hypotension was caused by a primary cardiac event, rather that a cardiac now abnormality could have been caused by a hypotensive event. It is also possible that the echocardiographic findings are old. However with the troponin of 19 would be very suspicious that there new and troponin of 19 is higher than we typically see from a demand ischemia without coronary disease. With her anti phospholipid antibody syndrome it is also possible she could have coronary thrombosis. In terms of where to go next, Dr. Santana is me in to see the patient and review her exam and story and findings with the patient and family. If we give diuretic will have be extremely careful with her blood pressures and this is probably not a good idea right now particularly with her blood pressure stable and her breathing reasonably well. If we give either aspirin or anticoagulants or other medicines to try and manage coronary issues there is risk of further adrenal hemorrhage and damage there. NEW DIAGNOSES: -acute myocardial injury with troponin of 19 -inferolateral wall motion abnormalities and reduced ejection fraction on echocardiogram DIFFERENTIAL DIAGNOSIS: -myocardial injury caused by hypotension in the setting of coronary atherosclerosis -injury caused by arterial thrombosis -question of lung abnormalities represent hydrostatic pulmonary edema verses ARDS versus other Objective: Vital Signs Temp Pulse Resp BP Pulse Ox 37.2 C 116 H 28 H 112/70 93 09/28/18 20:00 09/28/18 20:00 09/28/18 20:00 09/28/18 20:00 09/28/18 20:00 Laboratory Results 09/28/18 17:15 09/28/18 19:30 09/27/18 09/28/18 09/29/18 06:59 06:59 06:59 Intake Total 4508 Output Total 1985 Balance 2523 PT 17.4 SEC (12.0-15.0) H 09/28/18 08:15 INR 1.41 (0.83-1.16) H 09/28/18 08:15 ICD10 Worksheet Patient Problems: Problems Problem Status Onset Adrenal hemorrhage Acute Adrenal insufficiency Acute Hyponatremia Acute Hypotension Acute Tachycardia Acute
--- NOTE | 2018-09-28 22:37 | ECHO ---
[email or web address] [address] [address] Main: [phone] Fax: Transthoracic Echocardiogram Name: RUDI COREA MR#: [id number] Study Date: 09/28/2018 Study Time: 08:07 PM Date of : 1985 Age: 33 year(s) Height: 162.6 cm (64 in.) Weight: 68.04 kg (150 lb.) BSA: 1.73 m2 Gender: Female Examination: Echo Indication: Image Quality: Contrast: Requested by: Dorian Batista BP: 106 mmHg/67 mmHg Heart Rate: Rhythm: Indication: Procedure Staff [employer] Processor: Mark Hammond RDCS Reading Physician: Jamie Santana MD Requesting Provider: Conclusions: Normal size left ventricle. Mildly reduced systolic LV function. EF is 46 %. Regional wall motion abnormality noted. The posterior basal and mid segments are akinetic. Mild mitral valve regurgitation is present. Aortic valve is not well visualized. No aortic valve stenosis is present. There is no aortic valve regurgitation. There is no old studies for comparison. Measurements: Chambers Valvular Assessment AV/MV Valvular Assessment TV/PV Normal Normal Normal Name Value Range Name Value Range Name Value Range Ao Ellen (MM): 2.7 cm (2.2 cm-3.7 AV Vmax: 0.98 m/s (1 m/s-1.7 PV Vmax: 1.30 m/s (0.6 m/s-0.9 cm) m/s) m/s) IVSd (2D): 0.9 cm (0.6 cm-1.1 AV maxP mmHg ( - ) PV PGmax: 7 mmHg ( - ) cm) LVOT Vmax: 0.78 m/s (0.7 m/s-1.1 LVDd (2D): 4.2 cm (3.9 cm-5.3 m/s) cm) MV E Vmax: 0.59 m/s ( - ) LVDs (2D): 3.4 cm (2.1 cm-4 MV A Vmax: 0.68 m/s ( - ) cm) MV E/A: 0.87 ( - ) LVPWd (2D): 1.0 cm ( - ) LVEF (BP): 46 % (>=55 %) Continued Measurements: Chambers Valvular Assessment AV/MV Patient: RUDI COREA Study Date: 09/28/2018 Page 1 of 2 08:07 PM Name Value Name Value LADs Lon.5 cm MV E' Septal: 0.07 m/s LA Area: 12.9 cm2 MV E/E' Septal: 9.10 Findings: Left Ventricle: Normal size left ventricle. Mildly reduced systolic LV function. EF is 46 %. Regional wall motion abnormality noted. The posterior basal and mid segments are akinetic. Right Ventricle: Normal size right ventricle. Left Atrium: The left atrium is normal in size. Right Atrium: The right atrium is normal in size. Mitral Valve: Mild mitral valve regurgitation is present. Aortic Valve: Aortic valve is not well visualized. No aortic valve stenosis is present. There is no aortic valve regurgitation. (No Signature Object) Patient: RUDI COREA Study Date: 09/28/2018 Page 2 of 2 08:07 PM [id number]
[2018-09-29] MEDS ORDERED: D5W 500 ML IV ONE (01:00)
[2018-09-29] MEDS ORDERED: DESMOPRESSIN ACETATE 4 MCG/ML INJ IV ONE (01:00)
[2018-09-29] MEDS ORDERED: D5W 500 ML IV PRN (03:00)
[2018-09-29 03:52] LABS: PLATELET COUNT 175 10^3/uL (150-400)
[2018-09-29 04:04] LABS: INR 1.73 (0.83-1.16); PROTIME(PATIENT) 20.4 SEC (12.0-15.0)
[2018-09-29 04:11] LABS: CREATINE KINASE 234 IU/L (0-156)
[2018-09-29] MEDS: POTASSIUM Cl (KCl) 50 ML IV SCH ×2 (04:31→04:32)
[2018-09-29] MEDS: PIPERACILLIN/TAZO 4.5 GM/DEX 100 ML IV SCH ×3 (05:22→18:34)
[2018-09-29] MEDS: HYDROCORTISONE 100 MG/2 ML VIAL IVP SCH ×3 (05:22→22:06)
--- NOTE | 2018-09-29 08:25 | HOSPPROG ---
Hospitalist Progress Note Assessment/Plan: #Shock - thought 2/2 adrenal hemorrhage in setting of recent INR of 8 (now 1.5) with resulting adrenal insufficiency -off pressors -trend h&h with resumption of heparin, see below #Adrenal Insufficiency - cont hydrocortisone, decrease dose to 50 IV q8h #Acute myocardial injury - trop peaked at 19, now trending down, +WMA on echo. 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 Gaytan recommends resuming heparin no bolus -send DIC panel #Acute Encephalopathy, metabolic - mentation back to baseline #Hyponatremia - suspect SIADH related to above -nephrology managing, on D5W and Na lowered from 133 to 128 -will hold D5W for now (at 1700), recheck Na level -cont fluid restriction #Abd Pain - likely 2/2 adrenal hemorrhage #Hx of CVA, no e/o of acute - holding ASA / AC #Hypokalemia #PADMINI, resolved with IVF #Thrombocytopenia, mild #Hypocalcemia Full code Dispo - cont inpt, ICU. 60 minutes critical care time, discussed with Dr. Siddiqui, Dr. Garcia and Dr. Gaytan Subjective: Pt feels tired. She is up in chair. Denies pain, abdominal pain has resolved. No fevers/chills. Mentation at baseline per who is at bedside. Objective: Vital Signs Temp Pulse Resp BP Pulse Ox 37.4 C 101 H 29 H 99/62 L 93 09/29/18 04:00 09/29/18 08:00 09/29/18 08:00 09/29/18 08:00 09/29/18 08:00 Laboratory Results 09/29/18 03:40 09/28/18 09/29/18 09/30/18 05:59 05:59 05:59 Intake Total 6348 Output Total 3745 Balance 2603 PT 20.4 SEC (12.0-15.0) H 09/29/18 03:40 INR 1.73 (0.83-1.16) H 09/29/18 03:40 - Physical Exam Constitutional: no apparent distress Eyes: PERRL Ears, Nose, Mouth, Throat: moist mucous membranes Cardiovascular: regular rate and rhythym Respiratory: no respiratory distress, clear to auscultation Gastrointestinal: normoactive bowel sounds, soft, non-tender abdomen Skin: warm Musculoskeletal: full muscle strength Neurologic: AAOx3, other (baseline expressive aphasia) Psychiatric: interacting appropriately ICD10 Worksheet Patient Problems: Problems Problem Status Onset Adrenal hemorrhage Acute Adrenal insufficiency Acute Hyponatremia Acute Hypotension Acute Tachycardia Acute
[2018-09-29] MEDS ORDERED: HEPARIN/DEXTROSE 500 ML IV SCH (09:00)
[2018-09-29 09:03] LABS: PLATELET COUNT 139 10^3/uL (150-400)
[2018-09-29 09:05] LABS: PLATELET COUNT 139 10^3/uL (150-400)
[2018-09-29] MEDS: HEPARIN 10,000 UNIT/10 ML MDV (1,000 UNIT/ML) IVP PRN ×3 (09:43→22:48)
--- NOTE | 2018-09-29 09:47 | GCON ---
DATE OF CONSULTATION: 09/28/2018 CHIEF COMPLAINT: We have been asked by Dr. Batista to evaluate patient with an elevated troponin. HISTORY OF PRESENT ILLNESS: The patient is a 33-year-old female with a history of antiphospholipid a ntibody syndrome and previous CVA, who was admitted on 09/28/2018, with acute adrenal insufficiency. The patient was in her usual state of health until approximately 1 week prior to admission when she began to experience right upper quadrant pain, nausea, and fatigue. She presented to [facility] on 09/23/2018, to further evaluate her condition. She had a CT scan performed demonstrating s ome stranding, which was thought to be consistent with a ruptured ovarian cyst. The patient was arin mena with hydrocodone with improvement in her symptoms. At that time, her INR was noted to be 8. The patient was given vitamin K and discharged home with followup. On 09/25/2018, patient followed up w nikia Hinojosa and had a repeat INR performed. Her INR, at that time, was 1.19, and Coumadin was rein stituted. The patient continued to have symptoms of right upper quadrant pain, nausea, and anorexia. On 09/26/2018, she followed up with her primary care physician and was given Zofran as well as a st ool softener for potential constipation. On the morning of admission, the patient woke up experienci ng back pain. She was confused and disoriented, and was brought to the emergency department by her h usband for further evaluation. On arrival in the emergency department, she was noted to be hypotensi ve, hyponatremic, and hypokalemic. She was treated with intravenous fluids and had an abdominal CT s can performed demonstrating bilateral adrenal hemorrhage. The patient was started on hydrocortisone with improvement in her hemodynamics. A subsequent troponin was drawn and returned elevated at 19.9. A repeat troponin also returned elevated at 18.3, and her CPK returned elevated at 506. We were co nsulted to help in the further management of this patient. The patient denies a previous history of coronary artery disease. Patient denies symptoms of chest, arm, or neck pain. No history of orthopn ea or PND. PAST MEDICAL HISTORY: 1. Antiphospholipid antibody syndrome. 2. Cerebrovascular accident in 2012, with extension in 2014. 3. Hypothyroidism. 4. Libman-Sacks endocarditis with mitral regurgitation. 5. Patent foramen ovale. 6. Hyperlipidemia. MEDICATIONS: Please see medicine reconciliation form. ALLERGIES: No known drug allergies. SOCIAL HISTORY: The patient lives with her . She does not smoke. FAMILY HISTORY: Noncontributory. REVIEW OF SYSTEMS: A 10-point review of systems is negative except as noted in HPI. Followup annabellei oning on INR was notable for an INR of 3.61, in August 2010. At that time, her dose was decreased. Followup INR on August 30, was 3.09. The patient is scheduled for followup INR this week. PHYSICAL EXAMINATION: GENERAL: The patient is resting in bed. She does not appear to be in acute d istress. VITALS: Temperature is afebrile. Pulse is 113, blood pressure 110/65, respiratory rate is 30, SaO2 is 94% on room air. HEENT: Normocephalic, atraumatic. Extraocular muscles intact. NECK: No JVD. No bruits. LUNGS: No crackles auscultated. CARDIOVASCULAR: Tachycardia, regular rhythm , S1-S2. Grade 2/6 holosystolic murmur is noted at the left sternal border. ABDOMEN: Soft, mildly tender to palpation in the right upper quadrant. No hepatosplenomegaly noted. Aorta could not be ad equately palpated. EXTREMITIES: No clubbing, cyanosis, or edema. No evidence of embolic lesions. NEURO: Patient is awake, alert, and oriented x3. SKIN: No evidence of rashes. LABORATORY: White blood cell count is 8.14, hemoglobin was 12.7, and has decreased to 10.2. Platele t count 102. INR 1.41. Sodium 128, potassium 4.0, chloride 101, CO2 20, BUN 13, creatinine 1.0. Tr oponin 19.9, decreasing to 18.3. CPK is elevated at 506. EKG demonstrates sinus tachycardia, normal axis, prolonged QT interval, borderline left atrial enlargement, low voltage in the precordial leads . No acute ST or T-wave changes. Echocardiogram demonstrates normal left ventricular size with mildly reduced left ventricular systoli c function. Estimated ejection fraction was 45% to 50%. There was posterior akinesis involving the basal and mid segments. ASSESSMENT AND PLAN: The patient is a 33-year-old female with: 1. Adrenal insufficiency. The patient presented with hypotension. She was noted to have bilateral adrenal hemorrhages on CT scan. She is still requiring pressor support; however, hemodynamics are im proved. She is on appropriate therapy with hydrocortisone. 2. Elevated troponin. The patient presents with an elevated troponin in the setting of acute adrena l insufficiency. Her echocardiogram demonstrates a segmental wall motion abnormality concerning for ischemia in the posterior distribution. Her troponin is elevated at 19, but is trending down. Her C PK is elevated at 509. Patient denies symptoms consistent with angina. Her EKG demonstrates no acut e ST or T-wave changes. Suspect her ischemic event was likely 24-48 hours prior to admission based o n enzymatic values. Typically, I would favor an early invasive strategy to further evaluate her cond ition. However, she is at significant risk for anticoagulation given her bilateral adrenal hemorrhag es. I think she would be best served with a more conservative approach at this time given she is asy mptomatic. Her biomarkers are trending down, and her left ventricular systolic function is reasonabl e. We will continue to follow along with patient. /[id number]/MODL
[2018-09-29 09:58] LABS: INR 1.69 (0.83-1.16)
[2018-09-29] MEDS ORDERED: CALCIUM GLUCONATE 50 ML IV ONE (11:45)
[2018-09-29] MEDS ORDERED: CALCIUM GLUCONATE 1 GM in D5W 50 ML IV ONE (12:00)
--- NOTE | 2018-09-29 12:00 | SOAPPROG ---
SOJACINTA Progress Note Assessment/Plan: 1. Myocardial infarction - Pt presented with a NSTEMI in the setting of antiphospholipid antibody syndrome and adrenal insufficiency. The event was likely 2 to 3 days prior to admission given enzymatic findings. No history of chest, arm, neck pain at that time, however, patient does report nausea. echocardigram demonstrates a posterior wma and an EF of 45 to 50%. The etiology is not entirely clear. There are case reports of coronary thrombosis with antiphospholipid antibody syndrome. Pt denies symptoms of angina and CHF. Her hemodynamics have improved with management of her adrenal insufficiency. Will manage medically with asa and heparin. Start coreg and lisinopril as BP will tolerate. Consider angiogram when acute issues resolve. --> asa and heparin --> coreg and lisinopril as BP will tolerate --> FLP and LFTs for risk stratification 2. B adrenal hemorrhage 3. Acute adrenal insufficiency - Secondary to #2. On appropriate supplemental therapy at this time. Hemodynamics improved. 4. Anemia - Hgb decreased from 12.7 to 8.0 with hemorrhage. --> Continue to follow 09/29/18 12:01 Subjective: Feels better No chest pain, orthopnea, or PND + abdominal pain No BM Objective: Vital Signs Temp Pulse Resp BP Pulse Ox 37.0 C 113 H 24 H 97/70 L 92 09/29/18 11:39 09/29/18 11:39 09/29/18 11:39 09/29/18 11:39 09/29/18 11:39 Laboratory Results 09/29/18 08:55 09/29/18 07:30 09/28/18 09/29/18 09/30/18 05:59 05:59 05:59 Intake Total 6348 Output Total 3745 Balance 2603 PT 20.0 SEC (12.0-15.0) H 09/29/18 08:55 INR 1.69 (0.83-1.16) H 09/29/18 08:55 Physical Exam - Physical Exam General Appearance: alert, mild distress Respiratory: lungs clear Cardiac/Chest: regular rate, rhythm Abdomen: other (tender to palpation in RUQ) Skin: No embolic lesions Extremities: non-tender Neuro/Psych: alert, oriented x 3, aphasia ICD10 Worksheet Patient Problems: Problems Problem Status Onset Adrenal hemorrhage Acute Adrenal insufficiency Acute Hyponatremia Acute Hypotension Acute Tachycardia Acute
[2018-09-29 13:08] LABS: CREATINE KINASE 131 IU/L (0-156)
--- NOTE | 2018-09-29 13:18 | PDINTPN ---
Customer Service And Sales Consultant Progress Note Assessment/Plan: 33 F with history of antiphospholipid syndrome and CVAs developed abdominal pain , nausea, vomiting for 1-2 days before going to [facility] 09/23. Workup largely negative including CT abdo/pelvis which showed non-specific stranding but no hemorrhage despite an INR of >8 (usually well controlled per pt/family). She was given vitamin K and fu at hematology a few days later showed INR 1.5. She eventually restarted coumadin but then developed intense nausea and vomiting treated with Zofran. Two days later she developed worsening baseline apraxia so she was brought to the [facility] ED where a repeat CT showed bilateral adrenal hemorrhage, R>L with an ongoing sub-therapeutic INR and severe hypotension refractory to IVF boluses. She also had hyponatremia but hypokalemia. There was also a low grade fever. She was treated with antibiotics and pressors followed by dexamethasone then hydrocortisone with resolution of her hypotension over night. Part of the hypotension work-up including a troponin of 19 and WMAs on echo, but she denied chest pain or SOB at any time. * Adrenal crisis- I believe her initial insult was adrenal hemorrhage, probably from an initial thrombosis and exacerbated by her high INR. She responded very well to steroids and has no obvious septic focus; pressors now off. Without cardiac intervention she also normalized making a primary cardiac event unlikely. There has been no drop in H/H for hemorrhagic volume depletion. Will continue hydrocortisone but reduce dose to 50 mg/8 hrs and no role for florinef just yet. 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 * ACS/NSTEMI- case reviewed extensively with Dr. Santana- I agree that her primary event likely occurred 2-3 days ago and the risk of immediate intervention with resultant anticoagulation last pm obviated any laboratory associate activity (not likely the cause of her hypotension and not likely to preserve myocardium). Will need eventual cath to examine anatomy. * Hyponatremia/SIADH- sodium earl >10 in < 24 hrs but reduced with D5W. Current goal <18 meQ/l in 48 hrs. Renal consult appreciated * Transaminitis- likely related to shock and will recheck in AM * APS- she is at high risk for re-thrombosis. Agree with starting UFH for now and watch clinically for signs of re-bleed. Once fully anticoagulated would recheck CT for radiographic changes before transition to oral AC. Heme consult pending * * critical care time 35 minutes including lengthy discussions with team, patient , and family Subjective: substantial improvement overnight. No agitation and denies current pain, sob, n/ v/diarrhea Objective: Vital Signs Temp Pulse Resp BP Pulse Ox 37.0 C 113 H 24 H 97/70 L 92 09/29/18 11:39 09/29/18 11:39 09/29/18 11:39 09/29/18 11:39 09/29/18 11:39 Laboratory Results 09/29/18 08:55 09/28/18 09/29/18 09/30/18 05:59 05:59 05:59 Intake Total 6348 Output Total 3745 Balance 2603 PT 20.0 SEC (12.0-15.0) H 09/29/18 08:55 INR 1.69 (0.83-1.16) H 09/29/18 08:55 Physical Exam - Physical Exam General Appearance: WD/WN, alert, no apparent distress EENT: PERRL/EOMI Neck: full range of motion, supple Respiratory: lungs clear, normal breath sounds, No respiratory distress, No accessory muscle use Cardiac/Chest: normal peripheral pulses, regular rate, rhythm, No edema Abdomen: normal bowel sounds, soft, other (costophrenic angle tenderness, right) , No distended, No guarding, No rebound, No mass, No ascites Skin: normal color, warm/dry, No cyanosis Lymphatic: no adenopathy Extremities: No pedal edema Neuro/Psych: alert, normal mood/affect, oriented x 3 ICD10 Worksheet Patient Problems: Problems Problem Status Onset Adrenal hemorrhage Acute Adrenal insufficiency Acute Hyponatremia Acute Hypotension Acute Tachycardia Acute
[2018-09-29] MEDS ORDERED: POTASSIUM Cl (KCl) 50 ML IV ONE ×2 (13:58→23:52)
--- NOTE | 2018-09-29 15:15 | GCON ---
HEMATOLOGY FOLLOWUP CONSULTATION NOTE. DATE OF CONSULTATION: 09/29/2018 REASON FOR CONSULTATION: Ongoing management of antiphospholipid antibody syndrome. REQUESTING PHYSICIAN: Dr. Ana Lilia Loredo. RECOMMENDATIONS: 1. Agree with unfractionated heparin for now. 2. We will transition back to Coumadin after the need for potential invasive procedures has diminish ed. 3. She could be changed to Lovenox while we are waiting for her INR to become therapeutic. 4. She may need close INR monitoring as an outpatient and we should consider whether a home monitori ng with a fingerstick outpatient ProTime instrument might be appropriate. 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 She apparently had an elevated INR for unclear reasons that are unclear a couple of days ago. Her INR was 8. She was corrected with vitamin K and unfortunatel y developed presumed bilateral adrenal hemorrhages and hypoadrenalism. She was evaluated at [facility] and was found to have bilateral adrenal hemorrhages, as well as myocardial infarction. She is now improving on stress doses of hydrocortisone and her myocardial infarction is being treated pe r Cardiology. The patient is at high risk for both venous, as well as arterial clotting. She has had 2 life-threat ening clots on her arterial side, namely the CVA in 2012 and this most recent myocardial infarction. She requires lifelong full anticoagulation. We will follow along with you during this hospitalization and beyond. PAST MEDICAL HISTORY: Remarkable for her left middle cerebral artery CVA in 2012. She also has a hi story of Libman-Sacks endocarditis and a patent foramen ovale. She also has a history of hypothyroid ism and possible dyslipidemia. SOCIAL HISTORY: She is to Eamon, who is at her bedside today. 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 REVIEW OF SYSTEMS: Difficult to obtain because of the patient's expressive aphasia. PHYSICAL EXAMINATION: GENERAL: Reveals an alert woman with her arms folded over her chest and her h usband and mother at her bedside. LUNGS: No rales, rhonchi, or rubs today. CARDIAC: A regular rhy thm. ABDOMEN: Normal bowel sounds. LOWER EXTREMITIES: Trace edema. PLAN: We will continue to follow along with you during this hospitalization and beyond. /[id number]/MODL
[2018-09-29] MEDS ORDERED: NS 1,000 ML IV SCH (18:45)
--- NOTE | 2018-09-29 18:51 | SOAPPROG ---
SOAP Progress Note Assessment/Plan: Assessment: 1. Hyponatremia: Hypovolemic -Na initially 120, high ADH but she improved with NS (likely appropriate ADH release in this setting) -Corrected to 133 last night, given 2mcg ddAVP and ordered for 500cc D5W, D5W was continued overnight at 30cc/hr until this morning -Na remained in high 120s, latest 128 -Will resume NS at 75cc/hr -Recheck urine Na and osm -Cont to follow Na Q4hr -Cont water restriction of 1L when allowing PO intake. 2. Anemia - -CT abd done, result pending -To get transfused 3. Hypokalemia: -Improved with replacement Plan: 09/29/18 18:47 09/29/18 18:48 09/29/18 18:51 09/29/18 18:52 Subjective: Mild abdominal discomfort. No N/V. No other c/o Objective: Vital Signs Temp Pulse Resp BP Pulse Ox 37.0 C 81 12 96/70 L 88 L 09/29/18 11:39 09/29/18 15:39 09/29/18 15:39 09/29/18 15:39 09/29/18 15:39 Laboratory Results 09/29/18 16:00 09/29/18 17:20 09/28/18 09/29/18 09/30/18 05:59 05:59 05:59 Intake Total 6348 396.1 Output Total 3745 250 Balance 2603 146.1 PT 20.0 SEC (12.0-15.0) H 09/29/18 08:55 INR 1.69 (0.83-1.16) H 09/29/18 08:55 Physical Exam - Physical Exam General Appearance: WD/WN, no apparent distress Respiratory: lungs clear Cardiac/Chest: regular rate, rhythm Extremities: No swelling ICD10 Worksheet Patient Problems: Problems Problem Status Onset Adrenal hemorrhage Acute Adrenal insufficiency Acute Hyponatremia Acute Hypotension Acute Tachycardia Acute
[2018-09-29] MEDS ORDERED: FUROSEMIDE 20 MG/2 ML VIAL IVP ONE (22:00)
[2018-09-30] MEDS: PIPERACILLIN/TAZO 4.5 GM/DEX 100 ML IV SCH ×2 (00:16→05:50)
[2018-09-30] MEDS: HEPARIN 25,000 UNIT in NS 500 ML IV SCH ×2 (02:10→17:49)
[2018-09-30 04:58] LABS: PLATELET COUNT 166 10^3/uL (150-400)
[2018-09-30 05:16] LABS: INR 1.44 (0.83-1.16); PROTIME(PATIENT) 17.7 SEC (12.0-15.0)
[2018-09-30] MEDS: HYDROCORTISONE 100 MG/2 ML VIAL IVP SCH ×3 (05:50→22:04)
[2018-09-30] MEDS ORDERED: 1/2 NS 1,000 ML IV SCH (07:45)
[2018-09-30] MEDS: ASPIRIN 81 MG CHEWABLE TAB PO SCH (08:22)
--- NOTE | 2018-09-30 10:09 | SOAPPROG ---
SOAP Progress Note Assessment/Plan: 1. Myocardial infarction - Pt presented with a NSTEMI in the setting of antiphospholipid antibody syndrome and adrenal insufficiency. The event was likely 2 to 3 days prior to admission given enzymatic findings. No history of chest, arm, neck pain at that time, however, patient does report nausea. echocardigram demonstrates a posterior wma and an EF of 45 to 50%. The etiology is not entirely clear. There are case reports of coronary thrombosis with antiphospholipid antibody syndrome. Pt denies symptoms of angina. No significant arrhythmias on telemetry. No symptoms of CHF, however, CXR is c/w CHF vs ARDS. Will obtain a BNP to help with decision regarding diuresis. --> continue asa and heparin --> coreg and lisinopril as BP will tolerate --> BNP --> Cardiac catheterization when hgb remains stable on anticoagulation --> Echocardiogram in am 2. B adrenal hemorrhage 3. Acute adrenal insufficiency - Secondary to #2. On appropriate supplemental therapy at this time. Hemodynamics improved. 4. Anemia - Hgb decreased from 8.8 to 7.4 with initiation of anticoagulation. CT of abdomen demonstrated no significant in crease in adrenal hemorrhage. Pt treated with transfusion x 1. Hgb back up to 8.8. Benefits of anticoagulation are felt to outweigh risks at this time. --> Continue to follow 5. Antiphospholipid antibody syndrome - Appreciate hematology input. Subjective: No chest pain No orthopnea or PND + CHF vs ARDS on CXR Hgb 8.8 to 7.4 on anticoagulation Objective: Vital Signs Temp Pulse Resp BP Pulse Ox 37 C 111 H 30 H 103/65 92 09/30/18 07:45 09/30/18 09:00 09/30/18 09:00 09/30/18 09:00 09/30/18 09:00 Laboratory Results 09/30/18 04:47 09/30/18 06:45 09/29/18 09/30/18 10/01/18 05:59 05:59 05:59 Intake Total 6348 1854.1 Output Total 3745 2300 Balance 2603 -445.9 PT 17.7 SEC (12.0-15.0) H 09/30/18 04:47 INR 1.44 (0.83-1.16) H 09/30/18 04:47 Physical Exam - Physical Exam General Appearance: alert, no apparent distress Respiratory: crackles Cardiac/Chest: regular rate, rhythm Abdomen: non-tender, soft Skin: normal color Extremities: No pedal edema Neuro/Psych: alert, oriented x 3 ICD10 Worksheet Patient Problems: Problems Problem Status Onset Adrenal hemorrhage Acute Adrenal insufficiency Acute Hyponatremia Acute Hypotension Acute Tachycardia Acute
--- NOTE | 2018-09-30 10:41 | SOAPPROG ---
[facility] Progress Note Assessment/Plan: Assessment: - lupus anticoagulant - would continue UFH for now. No evidence of new retroperitoneal bleeding. Responded appropriately to 1 unit PRBC. Will need to be anticoagulated custodial with coumadin - NSTEMI - rx per cards. Probable cath in next 1-2 day. Plan: - UFH - cardiac cath when stable Will follow with you. Subjective: No new complaints this AM. Was short of breath yesterday but responded to diuresis Objective: Vital Signs Temp Pulse Resp BP Pulse Ox 37 C 111 H 30 H 103/65 92 09/30/18 07:45 09/30/18 09:00 09/30/18 09:00 09/30/18 09:00 09/30/18 09:00 Laboratory Results 09/30/18 04:47 09/30/18 06:45 09/28/18 09/29/18 09/30/18 23:59 23:59 23:59 Intake Total 4508 2236.1 1458 Output Total 3385 1560 1100 Balance 1123 676.1 358 PT 17.7 SEC (12.0-15.0) H 09/30/18 04:47 INR 1.44 (0.83-1.16) H 09/30/18 04:47 Physical Exam - Physical Exam General Appearance: alert, no apparent distress Respiratory: lungs clear Cardiac/Chest: regular rate, rhythm Abdomen: normal bowel sounds ICD10 Worksheet Patient Problems: Problems Problem Status Onset Adrenal hemorrhage Acute Adrenal insufficiency Acute Hyponatremia Acute Hypotension Acute Tachycardia Acute
[2018-09-30] MEDS ORDERED: FUROSEMIDE 20 MG/2 ML VIAL IV ONE (11:15)
--- NOTE | 2018-09-30 11:21 | SOAPPROG ---
SOAP Progress Note Assessment/Plan: Assessment: 1. Hyponatremia: Hypovolemic -Na initially 120, high ADH but she improved with NS (likely appropriate ADH release in this setting) -Corrected to 133 09/28, given 2mcg ddAVP and ordered for 500cc D5W, D5W was continued overnight at 30cc/hr until morning of 09/29 -Resumed NS at 75cc/hr evening of 09/29 -Overnight Na increased to 129 then 135 so NS turned off, Na stabilizing this morning at 136 -Recheck urine Na <5 and osm 414, both lower than before indicating renal salt preservation while trying to dilute urine as volume status improves -Resumed IVF with 1/2NS -Asked pharmacy to place drips in D5W (heparin) to NS instead -Cont to follow Na Q4hr, can decrease to Q12 if Na levels off today -Recheck urine studies in AM -Cont water restriction of 1L -On steroids for probable adrenal insufficiency with b/l adrenal hemorrhage 2. Anemia - -CT abd done, no new bleeding -Improved after she was transfused 3. Hypokalemia: -Improved with replacement Plan: 09/30/18 11:25 Subjective: Feels better this morning. Ate breakfast, up walking around. Objective: Vital Signs Temp Pulse Resp BP Pulse Ox 37 C 108 H 30 H 94/67 L 88 L 09/30/18 07:45 09/30/18 10:00 09/30/18 10:00 09/30/18 10:00 09/30/18 10:00 Laboratory Results 09/30/18 04:47 09/30/18 06:45 09/29/18 09/30/18 10/01/18 05:59 05:59 05:59 Intake Total 6348 1854.1 Output Total 3745 2300 Balance 2603 -445.9 PT 17.7 SEC (12.0-15.0) H 09/30/18 04:47 INR 1.44 (0.83-1.16) H 09/30/18 04:47 Physical Exam - Physical Exam General Appearance: WD/WN, alert, no apparent distress Respiratory: lungs clear, normal breath sounds Cardiac/Chest: regular rate, rhythm Abdomen: non-tender, soft Extremities: No swelling ICD10 Worksheet Patient Problems: Problems Problem Status Onset Adrenal hemorrhage Acute Adrenal insufficiency Acute Hyponatremia Acute Hypotension Acute Tachycardia Acute
--- NOTE | 2018-09-30 11:53 | HOSPPROG ---
Hospitalist Progress Note Assessment/Plan: #Shock - thought 2/2 adrenal hemorrhage in setting of recent INR of 8 with resulting adrenal insufficiency versus septic shock, off pressors -cont HC -atbx dc'd -trend h&h #Adrenal Insufficiency - cont hydrocortisone 50 IV q8h #Acute myocardial injury - trop peaked at 19, now trending down, +WMA on echo. Consider myocardial injury 2/2 hypotension vs coronary thrombosis -on heparin -cardiology following, possible cath in 1-2 days, d/w Dr. Siddiqui #Antiphospholipid antibody syndrome on chronic AC with Warfarin - as above, had INR 8 last week, s/p Vit K with subsequent sub-therapeutic INR, concern for thrombosis related to adrenal hemorrhage and MT -cont heparin, transition to coumadin prior to dc #ABLA - hgb 12.7 --> 7.4, with sinus tac. Hgb now 8.8 s/p [address] last night pers reviewed/interp- no enlarging RP bleed -cont to monitor h&h or for clinical signs of worsening bleed #AHRF - CXR pers reviewed / interp- suspect pulmonary edema -IV Lasix today #Acute Encephalopathy, metabolic - mentation back to baseline #Hyponatremia - suspect SIADH related to above, Na now corrected, appreciate renal assistance -on 1/2 NS per renal (note also giving lasix) #Abd Pain - likely 2/2 adrenal hemorrhage, improved #Hx of CVA - ASA #Hypokalemia - resolved #PADMINI, resolved with IVF #Thrombocytopenia, mild -DIC panel #Hypocalcemia Full code Dispo - cont inpt, ICU. 30 minutes critical care time Subjective: Pt feels better. Denies CP, endorses some SOB. No cough or fevers. Good uop. Taking po. Tired. Objective: Vital Signs Temp Pulse Resp BP Pulse Ox 36.2 C 100 28 H 100/70 100 09/30/18 11:45 09/30/18 11:45 09/30/18 11:45 09/30/18 11:45 09/30/18 11:45 Laboratory Results 09/30/18 04:47 09/30/18 10:57 09/29/18 09/30/18 10/01/18 05:59 05:59 05:59 Intake Total 6348 1854.1 Output Total 3745 2300 Balance 2603 -445.9 PT 17.7 SEC (12.0-15.0) H 09/30/18 04:47 INR 1.44 (0.83-1.16) H 09/30/18 04:47 - Physical Exam Constitutional: no apparent distress Eyes: PERRL Ears, Nose, Mouth, Throat: moist mucous membranes Cardiovascular: regular rate and rhythym Respiratory: no respiratory distress, inspiratory crackles Gastrointestinal: normoactive bowel sounds, soft, non-tender abdomen Skin: warm Musculoskeletal: full muscle strength Neurologic: AAOx3, other (baseline expressive aphasia) Psychiatric: interacting appropriately ICD10 Worksheet Patient Problems: Problems Problem Status Onset Adrenal hemorrhage Acute Adrenal insufficiency Acute Hyponatremia Acute Hypotension Acute Tachycardia Acute
--- NOTE | 2018-09-30 12:23 | PDINTPN ---
[employer] [facility] Progress Note Assessment/Plan: 33 F with history of antiphospholipid syndrome and CVAs developed abdominal pain , nausea, vomiting for 1-2 days before going to [facility] 09/23. Workup largely negative including CT abdo/pelvis which showed non-specific stranding but no hemorrhage despite an INR of >8 (usually well controlled per pt/family). She was given vitamin K and fu at hematology a few days later showed INR 1.5. She eventually restarted coumadin but then developed intense nausea and vomiting treated with Zofran. Two days later she developed worsening baseline apraxia so she was brought to the [facility] ED where a repeat CT showed bilateral adrenal hemorrhage, R>L with an ongoing sub-therapeutic INR and severe hypotension refractory to IVF boluses. She also had hyponatremia but hypokalemia. There was also a low grade fever. She was treated with antibiotics and pressors followed by dexamethasone then hydrocortisone with resolution of her hypotension over night. Part of the hypotension work-up including a troponin of 19 and WMAs on echo, but she denied chest pain or SOB at any time. * Adrenal crisis- I believe her initial insult was adrenal hemorrhage, probably from an initial thrombosis and exacerbated by her high INR. She responded very well to steroids and has no obvious septic focus; pressors now off. Without cardiac intervention she also normalized making a primary cardiac event unlikely. Although her PCT was 1.8, there was no clinical evidence of infection otherwise so Zosyn dc'd today. * ACS/NSTEMI- case reviewed extensively with Dr. Santana- I agree that her primary event likely occurred 2-3 days [employer] and the risk of immediate intervention with resultant anticoagulation on 09/28 obviated any mine laborer activity at that time (not likely the cause of her hypotension and not likely to preserve myocardium). Will need eventual cath to examine anatomy, likely tomorrow. * Hyponatremia/SIADH- sodium earl >10 in < 24 hrs but reduced with D5W. Current goal <18 meQ/l in 48 hrs. Renal consult appreciated. Now 136 * Transaminitis- likely related to shock and now resolved * APS- She is reported to have lupus anticoagulant, anti-cardiolipin antibodies , and anti-beta-2 glycoprotein antibodies with a CVA in 2012. She had been treated with fairly stable long term care phlebotomist coumadin. Her initial elevated INR [employer] could have been a relative drop in vitamin K with a dietary change as no other obvious explanation is apparent. Since her risk for additional thrombosis is high she started UFH 09/29. The drop in Hct from 25 to 23 without hemodynamic compromise or change in clinical status or CT findings was likely within laboratory measurement. She was nonetheless transfused one unit RBC, but the UFH drip continues as it should. She is stable today and I would favor ongoing observation with UFH alone for now, even if her H/H requires additional transfusion. Will eventually resume coumadin and no role for novel anticoagulants due to insufficient data. * Altered mental status likely 2/2 severe hypotension on admission. Nearly normal and full recovery expected * OK for SDU 09/30/18 12:23 09/30/18 12:40 Subjective: feels well. Denies sob, chest pain, abdominal pain. Transfused overnight for small drop in Hct Objective: Vital Signs Temp Pulse Resp BP Pulse Ox 36.2 C 100 28 H 100/70 100 09/30/18 11:45 09/30/18 11:45 09/30/18 11:45 09/30/18 11:45 09/30/18 11:45 Laboratory Results 09/30/18 04:47 09/30/18 10:57 09/29/18 09/30/18 10/01/18 05:59 05:59 05:59 Intake Total 6348 1854.1 Output Total 3745 2300 Balance 2603 -445.9 PT 17.7 SEC (12.0-15.0) H 09/30/18 04:47 INR 1.44 (0.83-1.16) H 09/30/18 04:47 Physical Exam - Physical Exam General Appearance: WD/WN, alert, no apparent distress EENT: PERRL/EOMI Neck: supple Respiratory: lungs clear, normal breath sounds, decreased breath sounds, No respiratory distress, No accessory muscle use, No rhonchi, No wheezing Cardiac/Chest: regular rate, rhythm, No edema Abdomen: non-tender, soft, other (no CVA tenderness), No distended, No guarding , No rebound, No mass Skin: normal color, warm/dry, No cyanosis, No diaphoresis, No rash Lymphatic: no adenopathy Extremities: No pedal edema Neuro/Psych: alert, normal mood/affect, oriented x 3 ICD10 Worksheet Patient Problems: Problems Problem Status Onset Adrenal hemorrhage Acute Adrenal insufficiency Acute Hyponatremia Acute Hypotension Acute Tachycardia Acute
--- NOTE | 2018-09-30 14:38 | ASMTCMCOM ---
CM Note CM Note Notes: 09/30/2018 Case Management Note Discussed pt during rounds. present during rounds. reports pt struggling with short term memory. Cog Eval ordered. Deferred CAGE, will reassess tomorrow. Pt admitted for hyponatremia, adrenal insufficiency, shock d/t renal hemorrhage, acute VT, antiphospholipid antibody syndrome on chronic AC with warfarin, AHRF, and acute metabolic encephalopathy. PT is recommending home vs home care. Will wait until closer to discharge to determine case management d/c needs. Case Management d/c poc: to be determined. Case Management to follow. Date Signed: 09/30/2018 02:37 PM Electronically Signed By:Manuela Sparks RN
[2018-09-30] MEDS ORDERED: POTASSIUM Cl (KCl) 50 ML IV ONE (15:12)
[2018-09-30] MEDS ORDERED: NS 1,000 ML IV SCH (18:00)
--- NOTE | 2018-10-01 05:08 | CPEKG ---
Test Reason : OPEN Blood Pressure : / mmHG Vent. Rate : 113 BPM Atrial Rate : 114 BPM P-R Int : 135 ms QRS Dur : 070 ms QT Int : 369 ms P-R-T Axes : 060 010 -07 degrees QTc Int : 506 ms Sinus tachycardia Low voltage, extremity leads Prolonged QT interval Confirmed by Cl Hunter ([id number]) on 10/01/2018 5:07:53 AM Referred By: Confirmed By:Cl Hunter
--- NOTE | 2018-10-01 05:10 | CPEKG ---
Test Reason : OPEN Blood Pressure : / mmHG Vent. Rate : 106 BPM Atrial Rate : 106 BPM P-R Int : 141 ms QRS Dur : 069 ms QT Int : 412 ms P-R-T Axes : 059 -19 000 degrees QTc Int : 548 ms Sinus tachycardia Borderline left axis deviation Low voltage, precordial leads Poor R wave progression across the precordium. Prolonged QT interval Confirmed by Cl Hunter ([id number]) on 10/01/2018 5:09:37 AM Referred By: Confirmed By:Cl Hunter
--- NOTE | 2018-10-01 05:11 | CPEKG ---
Test Reason : OPEN Blood Pressure : / mmHG Vent. Rate : 107 BPM Atrial Rate : 107 BPM P-R Int : 144 ms QRS Dur : 073 ms QT Int : 378 ms P-R-T Axes : 063 -08 -26 degrees QTc Int : 505 ms Sinus tachycardia Low voltage, precordial leads Prolonged QT interval Poor Rwave progression across the precordium. Confirmed by Cl Hunter ([id number]) on 10/01/2018 5:10:36 AM Referred By: Confirmed By:Cl Hunter
[2018-10-01] MEDS: HYDROCORTISONE 100 MG/2 ML VIAL IVP SCH ×3 (05:46→22:16)
--- NOTE | 2018-10-01 09:41 | SOAPPROG ---
SOAP Progress Note Assessment/Plan: Assessment: 1. Antiphospholipid antibody syndrome 2. History of CVA 3. Adrenal hemorrhage due to supratherapeutic INR 4. Adrenal insufficeincy due to #3 5. NSTEMI 6. Anemia Plan: - continue therapeutic unfractionated heparin - appreciate cardiology input. suspect SOB is due to CHF. CTA on 09/28 did not show evidence of PE - would hold off on transfusion as hemoglobin is stable at 7.8 and additional transfusion could worsen CHF. will defer to cardiology on this. - adrenal insufficiency being treated d/w Dr. Freeman 25 min spent w/ pt and in coordination of care. 10/01/18 09:38 Subjective: short of breath this AM. Objective: exam: tachypneic Lungs: dullness @ bases CV RRR no MGR Abd: +BS NT ND Ext: no edema skin: no petechie, purpura Vital Signs Temp Pulse Resp BP Pulse Ox 36.3 C 110 H 23 H 120/74 94 10/01/18 08:00 10/01/18 08:00 10/01/18 08:00 10/01/18 08:00 10/01/18 08:00 Laboratory Results 10/01/18 05:00 10/01/18 05:00 09/30/18 10/01/18 10/02/18 05:59 05:59 05:59 Intake Total 1854.1 3209 120 Output Total 2300 420 200 Balance -445.9 2789 -80 PT 17.7 SEC (12.0-15.0) H 09/30/18 04:47 INR 1.44 (0.83-1.16) H 09/30/18 04:47 ICD10 Worksheet Patient Problems: Problems Problem Status Onset Adrenal hemorrhage Acute Adrenal insufficiency Acute Hyponatremia Acute Hypotension Acute Tachycardia Acute
--- NOTE | 2018-10-01 09:45 | PDINTPN ---
[facility] Progress Note Assessment/Plan: Assessment: 33 F with history of antiphospholipid syndrome and CVAs developed abdominal pain , nausea, vomiting for 1-2 days before going to [facility] 09/23. Workup largely negative including CT abdo/pelvis which showed non-specific stranding but no hemorrhage despite an INR of >8 (usually well controlled per pt/family). She was given vitamin K and fu at hematology a few days later showed INR 1.5. She eventually restarted coumadin but then developed intense nausea and vomiting treated with Zofran. Two days later she developed worsening baseline apraxia so she was brought to the [facility] ED where a repeat CT showed bilateral adrenal hemorrhage, R>L with an ongoing sub-therapeutic INR and severe hypotension refractory to IVF boluses. She also had hyponatremia but hypokalemia. There was also a low grade fever. She was treated with antibiotics and pressors followed by dexamethasone then hydrocortisone with resolution of her hypotension over night. Part of the hypotension work-up including a troponin of 19 and WMAs on echo, but she denied chest pain or SOB at any time. * Adrenal crisis- Her initial insult was likely adrenal hemorrhage, probably from an initial thrombosis and exacerbated by her high INR. She responded very well to steroids and has no obvious septic focus; pressors now off. Without cardiac intervention she also normalized making a primary cardiac event unlikely. Although her PCT was 1.8, there was no clinical evidence of infection otherwise so Zosyn dc'd 09/30 * ACS/NSTEMI- case reviewed extensively with Dr. 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 Echo 10/01 shows improved LV systolic function. Will need eventual cath to examine anatomy once H/H stable. * Hyponatremia/SIADH- sodium earl >10 in < 24 hrs but reduced with D5W. Sodium up just 1 meq from yesterday. * Transaminitis- likely related to shock and now resolved * APS- She is reported to have lupus anticoagulant, anti-cardiolipin antibodies , and anti-beta-2 glycoprotein antibodies with a CVA in 2012. She had been treated with fairly stable detention coumadin. Her initial elevated INR [employer] could have been a relative drop in vitamin K with a dietary change as no other obvious explanation is apparent. Since her risk for additional thrombosis is high she started UFH 09/29. The drop in Hct from 25 to 23 without hemodynamic compromise or change in clinical status or CT findings was likely within laboratory measurement. She was nonetheless transfused one unit RBC, but the UFH drip continues as it should. She is stable today and I would favor ongoing observation with UFH alone for now, even if her H/H requires additional transfusion. Will eventually resume coumadin and no role for novel anticoagulants due to insufficient data. * Altered mental status likely 2/2 severe hypotension on admission. Nearly normal and full recovery expected * Anemia: H/H trending down, may be dilution vs ongoing bleed. No indication for transfusion currently. * Dyspnea/tachypnea: Multiple possible causes, including pulmonary edema, atelectasis, pneumonia, anemia, PE Plan: Check CXR, BNP. Dose of Lasix. Stop IVF, liberalize PO Na intake. If Na stays up, will liberalize fluid restriction. Consider repeat CT chest if dyspnea persists despite improving CXR. 10/01/18 11:06 Subjective: The patient reports dyspnea, worse than 1-2 days ago. She feels quite weak. She is a mild nonproductive cough. She is hungry, and denies abdominal pain nausea or vomiting. Objective: Vital Signs Temp Pulse Resp BP Pulse Ox 36.3 C 110 H 23 H 120/74 94 10/01/18 08:00 10/01/18 08:00 10/01/18 08:00 10/01/18 08:00 10/01/18 08:00 Laboratory Results 10/01/18 05:00 10/01/18 05:00 09/30/18 10/01/18 10/02/18 05:59 05:59 05:59 Intake Total 1854.1 3209 120 Output Total 2300 420 200 Balance -445.9 2789 -80 PT 17.7 SEC (12.0-15.0) H 09/30/18 04:47 INR 1.44 (0.83-1.16) H 09/30/18 04:47 Echo: Improved but not normalized RWMA and EF. Physical Exam - Physical Exam General Appearance: alert, no apparent distress EENT: normal ENT inspection Neck: normal inspection Respiratory: lungs clear Cardiac/Chest: regular rate, rhythm, No edema Abdomen: normal bowel sounds, non-tender, soft Skin: normal color, warm/dry Extremities: normal inspection Neuro/Psych: alert, normal mood/affect, oriented x 3 ICD10 Worksheet Patient Problems: Problems Problem Status Onset Adrenal hemorrhage Acute Adrenal insufficiency Acute Hyponatremia Acute Hypotension Acute Tachycardia Acute
[2018-10-01] MEDS ORDERED: FUROSEMIDE 20 MG/2 ML VIAL IVP ONE (09:55)
[2018-10-01] MEDS: ASPIRIN 81 MG CHEWABLE TAB PO SCH (09:58)
--- NOTE | 2018-10-01 10:20 | ECHO ---
[email or web address] [address] [address] Main: [phone] Fax: Transthoracic Echocardiogram Name: RUDI COREA MR#: [id number] Study Date: 10/01/2018 Study Time: 08:48 AM Date of : 1985 Age: 33 year(s) Height: 162.6 cm (64 in.) Weight: 68.04 kg (150 lb.) BSA: 1.73 m2 Gender: Female Examination: Echo Indication: Follow up on left venticular wall motion. Image Quality: Contrast: Requested by: Jamie Siddiqui BP: 120 mmHg/74 mmHg Heart Rate: 115 bpm Rhythm: Tachycardia Indication: Follow up on left venticular wall motion. Procedure Staff Maintenance Trainer: Mark Hammond RDCS Reading Physician: Jamie Siddiqui MD Requesting Provider: Conclusions: Normal size left ventricle. Low normal left ventricular systolic function. The ejection fraction is estimated to be 50-55 %. Compared to the previous exam of 09/28/18 the basilar to mid inferolateral wall motion has improved. There is is still subtle mid inferolateral wall motion. The ejection fraction has improved from 45% to 50-55%. Mild to moderate mitral regurgitation. There is no significant aortic valve regurgitation. No aortic valve stenosis is present. Measurements: Chambers Valvular Assessment AV/MV Valvular Assessment TV/PV Normal Normal Normal Name Value Range Name Value Range Name Value Range Ao Ellen (MM): 2.5 cm (2.2 cm-3.7 AV Vmax: 1.17 m/s (1 m/s-1.7 PV Vmax: 1.13 m/s (0.6 m/s-0.9 cm) m/s) m/s) IVSd (2D): 0.8 cm (0.6 cm-1.1 AV maxP mmHg ( - ) PV PGmax: 5 mmHg ( - ) cm) AV meanP mmHg ( - ) LVDd (2D): 4.4 cm (3.9 cm-5.3 LVOT Vmax: 0.82 m/s (0.7 m/s-1.1 cm) m/s) LVDs (2D): 3.4 cm (2.1 cm-4 WASHINGTON (Vmax): 2.0 cm2 ( - ) cm) [place] (VTI): 2.2 cm ( - ) LVPWd (2D): 0.9 cm ( - ) MV E Vmax: 0.94 m/s ( - ) LVOTd 1.9 cm 1.9 cm mm MV A Vmax: 0.61 m/s ( - ) LVEF (MOD4): 62 % (>=55 %) MV E/A: 1.54 ( - ) Visual EF: 50 % MV meanP mmHg ( - ) EF Range: 50-55 % MVA (Vmax): 2.6 m/s ( - ) Continued Measurements: Chambers Valvular Assessment AV/MV Patient: RUDI COREA Study Date: 10/01/2018 Page 1 of 2 08:48 AM Name Value Name Value LADs Lon.0 cm MV Annulus: 3.5 cm LA Area: 14.9 cm2 MV VTI: 16.00 cm LA Volume: 51 ml MR ERO: 0.070 cm2 LA Volume Index: 29.5 ml/m2 MR PISA radius: 5 mm MR Reg. Volume: 11 ml MR Reg. Fraction: 7 % Findings: Left Ventricle: Normal size left ventricle. No LV hypertrophy. Low normal left ventricular systolic function. The ejection fraction is estimated to be 50-55 %. The ejection fraction is visually estimated to be 50 %. Normal diastolic LV function. Compared to the previous exam of 09/28/18 the basilar to mid inferolateral wall motion has improved. There is is still subtle mid inferolateral wall motion. The ejection fraction has improved from 45% to 50-55%. Right Ventricle: Normal size right ventricle. Normal RV function. Left Atrium: The left atrium is normal in size. Right Atrium: The right atrium is normal in size. Mitral Valve: Mild to moderate mitral regurgitation. Aortic Valve: There is no significant aortic valve regurgitation. No aortic valve stenosis is present. The aortic valve opens well.. Tricuspid Valve: The tricuspid valve is normal in appearance and function. Pulmonic Valve: The pulmonic valve is normal in appearance and function. Aorta: The aorta is normal. Pericardium: No pericardial effusion. Exam Comments: (No Signature Object) Patient: RUDI COREA Study Date: 10/01/2018 Page 2 of 2 08:48 AM [id number]
--- NOTE | 2018-10-01 10:29 | SOAPPROG ---
SOAP Progress Note Assessment/Plan: Assessment/Plan: Hyponatremia: likely multifactorial in setting of vomiting, pain and adrenal insufficiency with adrenal hemorrhage. Na now stable at 137, has had an appropriate rate of rise overall since admission with slowing down her rise with some D5W as well as desmopressin. - Will decrease NS. - Continue to monitor daily. Hypokalemia: resolved with replacement, continue to monitor. Hypotension: improved, on IVFs and steroids, will cut down IVFs. Hypervolemia: pt getting Lasix, will cut down NS. Thank you for the interesting consult. Nephrology will sign off, please call if you have any additional questions or concerns. Subjective: No acute events overnight. Pt states that she feels very tired and also feels her breathing is a little labored today. Objective: Vital Signs Temp Pulse Resp BP Pulse Ox 36.3 C 110 H 23 H 120/74 94 10/01/18 08:00 10/01/18 08:00 10/01/18 08:00 10/01/18 08:00 10/01/18 08:00 Laboratory Results 10/01/18 05:00 10/01/18 05:00 09/30/18 10/01/18 10/02/18 05:59 05:59 05:59 Intake Total 1854.1 3209 120 Output Total 2300 420 200 Balance -445.9 2789 -80 PT 17.7 SEC (12.0-15.0) H 09/30/18 04:47 INR 1.44 (0.83-1.16) H 09/30/18 04:47 General: alert and oriented, no acute distress Eyes: EOMI, PERRL OP: Clear CV: RRR Resp: nonlabored respirations on NC Abd: Soft, NT/ND Ext: trace edema BLE Neuro: CN II-XII grossly intact ICD10 Worksheet Patient Problems: Problems Problem Status Onset Adrenal hemorrhage Acute Adrenal insufficiency Acute Hyponatremia Acute Hypotension Acute Tachycardia Acute
--- NOTE | 2018-10-01 11:19 | HOSPPROG ---
Hospitalist Progress Note Assessment/Plan: #Shock - thought 2/2 adrenal hemorrhage in setting of recent INR of 8 with resulting adrenal insufficiency versus septic shock, off pressors -cont HC -atbx dc'd -trend h&h -rpt imaging if hemodynamics change or hgb dropping to r/o RP bleed #Adrenal Insufficiency - cont hydrocortisone 50 IV q8h #Acute myocardial injury - trop peaked at 19, now trending down, +WMA on echo, improved on f/u echo today (EF now 50-55% from 45%). Consider myocardial injury 2/2 hypotension vs coronary thrombosis -on heparin -cardiology following, possible cath in 1-2 days, d/w Dr. Siddiqui #Antiphospholipid antibody syndrome on chronic AC with Warfarin - as above, had INR 8 last week, s/p Vit K with subsequent sub-therapeutic INR, concern for thrombosis related to adrenal hemorrhage and CO -cont heparin, transition to coumadin prior to dc #ABLA - hgb 12.7 --> 7.4, with sinus tac. Hgb now 7.8 s/p [address] last night pers reviewed/interp- no enlarging RP bleed -cont to monitor h&h or for clinical signs of worsening bleed on heparin #AHRF - CXR c/w pulmonary edema -rpt IV Lasix today, d/c IVF's #Acute Encephalopathy, metabolic - mentation back to baseline #Hyponatremia - suspect SIADH related to above, Na now corrected, appreciate renal assistance -d/c IVF's #Abd Pain - likely 2/2 adrenal hemorrhage, improved #Constipation - bowel regimen #Hx of CVA - ASA #Hypokalemia - resolved #PADMINI, resolved with IVF #Thrombocytopenia, mild -DIC panel #Hypocalcemia Full code Dispo - cont inpt, ICU. 30 minutes critical care time Subjective: Pt feels ok. Denies abdominal or flank pain during my exam, though apparently endorsed flank pain earlier this am. She also feels SOB. No CP. No fevers. No dizziness. Hasn't had BM in a week. Objective: Vital Signs Temp Pulse Resp BP Pulse Ox 36.3 C 110 H 23 H 120/74 94 10/01/18 08:00 10/01/18 08:00 10/01/18 08:00 10/01/18 08:00 10/01/18 08:00 Laboratory Results 10/01/18 05:00 10/01/18 05:00 09/30/18 10/01/18 10/02/18 05:59 05:59 05:59 Intake Total 1854.1 3209 120 Output Total 2300 420 200 Balance -445.9 2789 -80 PT 17.7 SEC (12.0-15.0) H 09/30/18 04:47 INR 1.44 (0.83-1.16) H 09/30/18 04:47 - Physical Exam Constitutional: no apparent distress Eyes: PERRL Ears, Nose, Mouth, Throat: moist mucous membranes Cardiovascular: regular rate and rhythym Respiratory: no respiratory distress, reduced air movement, inspiratory crackles Gastrointestinal: normoactive bowel sounds, soft, non-tender abdomen Skin: warm Musculoskeletal: full muscle strength Neurologic: AAOx3 Psychiatric: interacting appropriately ICD10 Worksheet Patient Problems: Problems Problem Status Onset Adrenal hemorrhage Acute Adrenal insufficiency Acute Hyponatremia Acute Hypotension Acute Tachycardia Acute
[2018-10-01] MEDS ORDERED: POLYETHYLENE GLYCOL 3350 17 GM PKT PO PRN (11:25)
[2018-10-01] MEDS ORDERED: MAGNESIUM HYDROXIDE 30 ML UDCUP PO PRN (11:25)
[2018-10-01] MEDS ORDERED: LACTULOSE 20 GM/30 ML UDCUP PO PRN (11:25)
[2018-10-01] MEDS ORDERED: BISACODYL 10 MG SUPP PR PRN (11:25)
[2018-10-01] MEDS: HEPARIN 25,000 UNIT in NS 500 ML IV SCH (11:48)
--- NOTE | 2018-10-01 16:54 | ASMTCMCOM ---
CM Note CM Note Notes: 10/01/2018 Case Management Note Met w/pt for family meeting. Please see Palliative note for details. declines need for home care at this time. Pt parents are flying to help upon discharge and feels it's beneficial for pt to restart outpatient therapies for social interactions. Case Management agreed to reconnect with family on day of d/c to assess for home care needs at that time. Case Management d/c poc: anticipating independent with follow up as directed. Case Management to follow. Date Signed: 10/01/2018 04:53 PM Electronically Signed By:Manuela Sparks RN
--- NOTE | 2018-10-01 18:15 | SOAPPROG ---
ROCIO Progress Note Assessment/Plan: 1. Myocardial infarction - Pt presented with a NSTEMI in the setting of antiphospholipid antibody syndrome and adrenal insufficiency. The event was likely 2 to 3 days prior to admission given enzymatic findings. No history of chest, arm, neck pain at that time, however, patient does report nausea. echocardigram demonstrates a posterior wma and an EF of 45 to 50%. The etiology is not entirely clear. There are case reports of coronary thrombosis with antiphospholipid antibody syndrome. LVEF improved to 50 to 55% on 10/01. --> continue asa and heparin --> coreg and lisinopril as BP will tolerate --> Cardiac catheterization when hgb remains stable on anticoagulation 2. B adrenal hemorrhage 3. Acute adrenal insufficiency - Secondary to #2. On appropriate supplemental therapy at this time. Hemodynamics improved. 4. Anemia - Hgb decreased from 8.8 to 7.4 with initiation of anticoagulation. CT of abdomen demonstrated no significant in crease in adrenal hemorrhage. Pt treated with transfusion x 1. Hgb back up to 8.8 but decreased to 7.8. Will repeat this afternoon. ? transfusion. Benefits of anticoagulation are felt to outweigh risks at this time. --> Continue to follow 5. Antiphospholipid antibody syndrome - Appreciate hematology input. 10/01/18 18:12 Subjective: No chest pain + dyspnea No abdominal pain Pt reports low back pain. No flank pain Objective: Vital Signs Temp Pulse Resp BP Pulse Ox 36.6 C 97 28 H 109/66 99 10/01/18 16:00 10/01/18 16:00 10/01/18 16:00 10/01/18 16:00 10/01/18 16:00 Laboratory Results 10/01/18 14:05 10/01/18 05:00 09/30/18 10/01/18 10/02/18 05:59 05:59 05:59 Intake Total 1854.1 3209 1395 Output Total 2300 420 1850 Balance -445.9 2789 -455 PT 17.7 SEC (12.0-15.0) H 09/30/18 04:47 INR 1.44 (0.83-1.16) H 09/30/18 04:47 Physical Exam - Physical Exam General Appearance: alert, mild distress Respiratory: crackles Cardiac/Chest: regular rate, rhythm Skin: normal color Extremities: No pedal edema Neuro/Psych: alert, oriented x 3, other (expressive aphasia) ICD10 Worksheet Patient Problems: Problems Problem Status Onset Adrenal hemorrhage Acute Adrenal insufficiency Acute Hyponatremia Acute Hypotension Acute Tachycardia Acute
[2018-10-01] MEDS: SENNOSIDES/DOCUSATE SODIUM TAB PO SCH (22:11)
[2018-10-02] MEDS: HEPARIN 25,000 UNIT in NS 500 ML IV SCH ×2 (04:22→20:53)
[2018-10-02] MEDS: HYDROCORTISONE 100 MG/2 ML VIAL IVP SCH ×3 (06:38→22:09)
[2018-10-02] MEDS ORDERED: METOPROLOL TARTRATE 5 MG/5 ML INJ IVP ONE (10:00)
[2018-10-02] MEDS: LEVOTHYROXINE 112 MCG TAB PO SCH (10:51)
[2018-10-02] MEDS: ASPIRIN 81 MG CHEWABLE TAB PO SCH (10:51)
[2018-10-02] MEDS: SENNOSIDES/DOCUSATE SODIUM TAB PO SCH ×2 (10:51→22:10)
--- NOTE | 2018-10-02 10:56 | HOSPPROG ---
Hospitalist Progress Note Assessment/Plan: #Shock - thought 2/2 adrenal hemorrhage in setting of recent INR of 8 with resulting adrenal insufficiency versus septic shock, off pressors -cont HC -atbx dc'd -trend h&h (hgb 7.4 --> 7.8 after 1 u prbc's 3 d ago) -rpt imaging if hemodynamics change or hgb dropping to r/o RP bleed #Adrenal Insufficiency - due to above -cont hydrocortisone 50 IV q8h, can probably start to wean tomorrow #Acute myocardial injury - trop peaked at 19, now trending down, +WMA on echo, improved on f/u echo today (EF now 50-55% from 45%). Consider myocardial injury 2/2 hypotension vs coronary thrombosis -on heparin -CTA today -metoprolol per cards -cardiology following, possible cath in 1-2 days #Antiphospholipid antibody syndrome on chronic AC with Warfarin - as above, had INR 8 last week, s/p Vit K with subsequent sub-therapeutic INR, concern for thrombosis related to adrenal hemorrhage and LA -cont heparin, transition to coumadin prior to dc #ABLA - hgb 12.7 --> 7.4, with sinus tac. Hgb now 7.8 s/p [address] last night pers reviewed/interp- no enlarging RP bleed -cont to monitor h&h or for clinical signs of worsening bleed on heparin #AHRF - CXR yest c/w pulmonary edema, now on room air -cont diuresis with IV Lasix #Acute Encephalopathy, metabolic - mentation back to baseline #Hyponatremia - suspect SIADH related to above, Na now corrected #Abd Pain - likely 2/2 adrenal hemorrhage, improved #Constipation - bowel regimen #Hx of CVA - ASA #Hypokalemia - resolved #PADMINI, resolved with IVF #Thrombocytopenia, mild -DIC panel #Hypocalcemia Full code Dispo - cont inpt, ICU. 30 minutes critical care time Subjective: Pt feels better. Breathing improved. Denies CP. Still tired and weak. She will ambulate with PT today. No fevers. Taking po well. Objective: Vital Signs Temp Pulse Resp BP Pulse Ox 36.8 C 90 17 99/59 L 95 10/02/18 04:00 10/02/18 06:00 10/02/18 06:00 10/02/18 06:00 10/02/18 06:00 Laboratory Results 10/02/18 04:30 10/02/18 04:30 10/01/18 10/02/18 10/03/18 05:59 05:59 05:59 Intake Total 3209 2343 Output Total 420 2075 Balance 2789 268 PT 17.7 SEC (12.0-15.0) H 09/30/18 04:47 INR 1.44 (0.83-1.16) H 09/30/18 04:47 - Physical Exam Constitutional: no apparent distress Eyes: PERRL Ears, Nose, Mouth, Throat: moist mucous membranes Cardiovascular: regular rate and rhythym Respiratory: no respiratory distress, inspiratory crackles Gastrointestinal: normoactive bowel sounds, soft, non-tender abdomen Skin: warm Musculoskeletal: full muscle strength Neurologic: AAOx3 Psychiatric: interacting appropriately ICD10 Worksheet Patient Problems: Problems Problem Status Onset Adrenal hemorrhage Acute Adrenal insufficiency Acute Hyponatremia Acute Hypotension Acute Tachycardia Acute
[2018-10-02] MEDS ORDERED: METOPROLOL TARTRATE 25 MG TAB PO ONE (11:30)
--- NOTE | 2018-10-02 11:47 | PDINTPN ---
Firer Helper Progress Note Assessment/Plan: Assessment: 33 F with history of antiphospholipid syndrome and CVAs developed abdominal pain , nausea, vomiting for 1-2 days before going to [facility] 09/23. Workup largely negative including CT abdo/pelvis which showed non-specific stranding but no hemorrhage despite an INR of >8 (usually well controlled per pt/family). She was given vitamin K and fu at hematology a few days later showed INR 1.5. She eventually restarted coumadin but then developed intense nausea and vomiting treated with Zofran. Two days later she developed worsening baseline apraxia so she was brought to the [facility] ED where a repeat CT showed bilateral adrenal hemorrhage, R>L with an ongoing sub-therapeutic INR and severe hypotension refractory to IVF boluses. She also had hyponatremia but hypokalemia. There was also a low grade fever. She was treated with antibiotics and pressors followed by dexamethasone then hydrocortisone with resolution of her hypotension over night. Part of the hypotension work-up including a troponin of 19 and WMAs on echo, but she denied chest pain or SOB at any time. * Adrenal crisis- Her initial insult was likely adrenal hemorrhage, probably from an initial thrombosis and exacerbated by her high INR. She responded very well to steroids and has no obvious septic focus; pressors now off. Without cardiac intervention she also normalized making a primary cardiac event unlikely. Although her PCT was 1.8, there was no clinical evidence of infection otherwise so Zosyn dc'd 09/30 * ACS/NSTEMI- case reviewed extensively with Dr. Santana- I agree that her primary event likely occurred 2-3 days CLOTH BALER and the risk of immediate intervention with resultant anticoagulation on 09/28 obviated any blood and plasma laboratory assistant activity at that time (not likely the cause of her hypotension and not likely to preserve myocardium). Echo 10/01 shows improved LV systolic function. Will need eventual cath to examine anatomy once H/H stable. * Hyponatremia/SIADH- sodium earl >10 in < 24 hrs but reduced with D5W. Sodium up just 2 meq in the last 2 days. * Transaminitis- likely related to shock and now resolved * APS- She is reported to have lupus anticoagulant, anti-cardiolipin antibodies , and anti-beta-2 glycoprotein antibodies with a CVA in 2012. She had been treated with fairly stable longterm coumadin. Her initial elevated INR CLOTH BALER could have been a relative drop in vitamin K with a dietary change as no other obvious explanation is apparent. Since her risk for additional thrombosis is high she started UFH 09/29. The drop in Hct from 25 to 23 without hemodynamic compromise or change in clinical status or CT findings was likely within laboratory measurement. She was nonetheless transfused one unit RBC, but the UFH drip continues as it should. She is stable today and I would favor ongoing observation with UFH alone for now, even if her H/H requires additional transfusion. Will eventually resume coumadin and no role for novel anticoagulants due to insufficient data. * Altered mental status likely 2/2 severe hypotension on admission. Nearly normal and full recovery expected * Anemia: H/H low but stable from yesterday. No indication for transfusion currently * Dyspnea/tachypnea: Multiple possible causes, including pulmonary edema, atelectasis, pneumonia, anemia, PE. Improved. Oxygenation okay on room air at rest. Plan: Repeat Lasix. Continue to follow sodium level off of fluid restriction. CTA of the coronaries. Continue heparin. May be ready to change to p.o. Can probably transfer to floor. 10/02/18 11:51 Subjective: Feels okay, denies dyspnea. Strength improving. Appetite good. Objective: Vital Signs Temp Pulse Resp BP Pulse Ox 36.5 C 91 24 H 117/83 H 97 10/02/18 08:00 10/02/18 10:00 10/02/18 10:00 10/02/18 10:00 10/02/18 10:00 Laboratory Results 10/02/18 04:30 10/02/18 04:30 10/01/18 10/02/18 10/03/18 05:59 05:59 05:59 Intake Total 3209 2343 Output Total 420 2075 Balance 2789 268 PT 17.7 SEC (12.0-15.0) H 09/30/18 04:47 INR 1.44 (0.83-1.16) H 09/30/18 04:47 Chest x-ray 10/01/2018: Slight improvement basilar opacities. Images reviewed by me. Laboratory Tests 10/02/18 04:30 NT-Pro-B Natriuret Pep 6910 H Physical Exam - Physical Exam General Appearance: alert, no apparent distress EENT: normal ENT inspection Neck: normal inspection Respiratory: lungs clear, normal breath sounds, No respiratory distress Cardiac/Chest: regular rate, rhythm, No edema Abdomen: normal bowel sounds, non-tender, soft Skin: normal color, warm/dry Extremities: normal inspection Neuro/Psych: alert, normal mood/affect, oriented x 3 ICD10 Worksheet Patient Problems: Problems Problem Status Onset Adrenal hemorrhage Acute Adrenal insufficiency Acute Hyponatremia Acute Hypotension Acute Tachycardia Acute
--- NOTE | 2018-10-02 13:07 | SOAPPROG ---
SOAP Progress Note Assessment/Plan: Assessment: 1. Antiphospholipid antibody syndrome 2. History of CVA 3. Adrenal hemorrhage due to supratherapeutic INR 4. Adrenal insufficeincy due to #3 5. NSTEMI 6. Anemia Plan: - continue therapeutic unfractionated heparin. can convert to coumadin when no additional invasive procedures needed. target INR 2-3. pt will need lifelong anticoagulation. - appreciate cardiology input. suspect SOB is due to CHF. CTA on 09/28 did not show evidence of PE - adrenal insufficiency being treated Subjective: feels much better today. Objective: exam: NAD, breathing comfortably Lungs CTAB no JVD CV RRR no MGR Abd: +BS NT ND Ext: no edema Vital Signs Temp Pulse Resp BP Pulse Ox 36.5 C 117 H 24 H 117/83 H 94 10/02/18 08:00 10/02/18 10:51 10/02/18 10:00 10/02/18 10:00 10/02/18 10:51 Laboratory Results 10/02/18 04:30 10/02/18 04:30 10/01/18 10/02/18 10/03/18 05:59 05:59 05:59 Intake Total 3209 2343 Output Total 420 2075 Balance 2789 268 PT 17.7 SEC (12.0-15.0) H 09/30/18 04:47 INR 1.44 (0.83-1.16) H 09/30/18 04:47 ICD10 Worksheet Patient Problems: Problems Problem Status Onset Adrenal hemorrhage Acute Adrenal insufficiency Acute Hyponatremia Acute Hypotension Acute Tachycardia Acute
[2018-10-02] MEDS: FUROSEMIDE 40 MG/4 ML VIAL IVP SCH (15:00)
--- NOTE | 2018-10-02 17:26 | SOAPPROG ---
SOJACINTA Progress Note Assessment/Plan: 1. Myocardial infarction - Pt presented with a NSTEMI in the setting of antiphospholipid antibody syndrome and adrenal insufficiency. The event was likely 2 to 3 days prior to admission given enzymatic findings. No history of chest, arm, neck pain at that time, however, patient does report nausea. echocardigram demonstrates a posterior wma and an EF of 45 to 50%. The etiology is not entirely clear. There are case reports of coronary thrombosis with antiphospholipid antibody syndrome. LVEF improved to 50 to 55% on 10/01. --> continue asa and heparin --> start metoprolol --> coronary CT angiogram 2. B adrenal hemorrhage 3. Acute adrenal insufficiency - Secondary to #2. On appropriate supplemental therapy at this time. Hemodynamics improved. 4. Anemia - Hgb has stabilized at 7.8. --> Continue to follow 5. Antiphospholipid antibody syndrome - Appreciate hematology input. Subjective: No chest pain No orthopnea or PND dyspnea improved Objective: Vital Signs Temp Pulse Resp BP Pulse Ox 36.5 C 96 25 H 129/74 H 91 L 10/02/18 08:00 10/02/18 16:00 10/02/18 16:00 10/02/18 16:00 10/02/18 16:00 Laboratory Results 10/02/18 04:30 10/02/18 04:30 10/01/18 10/02/18 10/03/18 05:59 05:59 05:59 Intake Total 3209 2343 Output Total 420 2075 Balance 2789 268 PT 17.7 SEC (12.0-15.0) H 09/30/18 04:47 INR 1.44 (0.83-1.16) H 09/30/18 04:47 Physical Exam - Physical Exam General Appearance: alert, no apparent distress Respiratory: lungs clear Cardiac/Chest: regular rate, rhythm Extremities: No pedal edema Neuro/Psych: alert, oriented x 3 ICD10 Worksheet Patient Problems: Problems Problem Status Onset Adrenal hemorrhage Acute Adrenal insufficiency Acute Hyponatremia Acute Hypotension Acute Tachycardia Acute
[2018-10-02] MEDS: METOPROLOL TARTRATE 50 MG TAB PO SCH (22:09)
[2018-10-03] MEDS: LEVOTHYROXINE 112 MCG TAB PO SCH (05:25)
[2018-10-03] MEDS: HYDROCORTISONE 100 MG/2 ML VIAL IVP SCH ×2 (05:25→15:14)
[2018-10-03] MEDS: SENNOSIDES/DOCUSATE SODIUM TAB PO SCH (07:42)
[2018-10-03] MEDS: ASPIRIN 81 MG CHEWABLE TAB PO SCH (08:07)
[2018-10-03] MEDS: METOPROLOL TARTRATE 50 MG TAB PO SCH (08:07)
[2018-10-03] MEDS: FUROSEMIDE 40 MG/4 ML VIAL IVP SCH (08:07)
[2018-10-03] MEDS ORDERED: METOPROLOL TARTRATE 5 MG/5 ML INJ ONE (12:55)
[2018-10-03] MEDS ORDERED: METOPROLOL TARTRATE 5 MG/5 ML INJ IVP ONE (13:00)
[2018-10-03] MEDS: HEPARIN 25,000 UNIT in NS 500 ML IV SCH (13:56)
[2018-10-03] MEDS: METOPROLOL TARTRATE 5 MG/5 ML INJ IVP PRN ×2 (14:01→14:22)
--- NOTE | 2018-10-03 14:49 | HOSPPROG ---
Hospitalist Progress Note Assessment/Plan: #Shock - thought 2/2 adrenal hemorrhage in setting of recent INR of 8 with resulting adrenal insufficiency versus septic shock, off pressors -cont steroids, wean dose as below -atbx dc'd -trend h&h -rpt imaging if hemodynamics change or hgb dropping to r/o RP bleed #Adrenal Insufficiency - due to above -wean hydrocortisone, change to po today, discussed with Dr. Freeman -pt will f/u with her supervisor instrument maintenance, Dr. Vinnie Sanchez #Acute myocardial injury - trop peaked at 19, now trending down, +WMA on echo, improved on f/u echo (EF now 50-55% from 45%). Consider myocardial injury 2/2 hypotension vs coronary thrombosis -on heparin -CT coronary angiogram today -metoprolol per cards, need HR in 60's for CT study -cardiology following, appreciate assistance #Antiphospholipid antibody syndrome on chronic AC with Warfarin - had INR 8 last week, s/p Vit K with subsequent sub-therapeutic INR, concern for thrombosis related to adrenal hemorrhage and AK -cont heparin, transition to coumadin prior to dc once it's clear she won't need cath or other intervention (await CT coronary angio result) #ABLA - hgb 12.7 --> 7.4, now 8.1 s/p [address] 09/30 pers reviewed/interp- no enlarging RP bleed -transfuse another 1 u prbc's per cards -cont to monitor h&h, watch clinical signs of worsening bleed on heparin #AHRF - Pt had increased WOB and CXR c/w pulmonary edema, now on room air after several days of diuresis -cont IV Lasix #Acute Encephalopathy, metabolic - mentation back to baseline #Hyponatremia - suspect SIADH related to above, Na now corrected #Abd Pain - likely 2/2 adrenal hemorrhage, improved #Constipation - bowel regimen #Hx of CVA - ASA, baseline expressive aphasia #Hypokalemia - resolved #PADMINI, resolved with IVF #Thrombocytopenia, mild #Hypocalcemia Full code Dispo - cont inpt, transfer to PCU Subjective: Pt feels ok. Breathing is better. No CP. No fevers. No N/V. Tolerating po. Objective: Vital Signs Temp Pulse Resp BP Pulse Ox 37.1 C 88 20 116/62 95 10/03/18 04:00 10/03/18 14:22 10/03/18 14:00 10/03/18 14:22 10/03/18 14:00 Laboratory Results 10/03/18 05:25 10/03/18 05:25 10/02/18 10/03/18 10/04/18 05:59 05:59 05:59 Intake Total 2343 550 Output Total 2075 2400 500 Balance 268 -1850 -500 PT 17.7 SEC (12.0-15.0) H 09/30/18 04:47 INR 1.44 (0.83-1.16) H 09/30/18 04:47 - Physical Exam Constitutional: no apparent distress Eyes: PERRL Ears, Nose, Mouth, Throat: moist mucous membranes Cardiovascular: regular rate and rhythym Respiratory: no respiratory distress, clear to auscultation Gastrointestinal: normoactive bowel sounds, soft, non-tender abdomen Skin: warm Musculoskeletal: full muscle strength Neurologic: AAOx3 Psychiatric: interacting appropriately ICD10 Worksheet Patient Problems: Problems Problem Status Onset Adrenal hemorrhage Acute Adrenal insufficiency Acute Hyponatremia Acute Hypotension Acute Tachycardia Acute
[2018-10-03] MEDS: LORazepam 2 MG/ML INJ IVP PRN (15:12)
--- NOTE | 2018-10-03 15:41 | PDINTPN ---
Tourist Information Assistant Progress Note Assessment/Plan: Assessment: 33 F with history of antiphospholipid syndrome and CVAs developed abdominal pain , nausea, vomiting for 1-2 days before going to [facility] 09/23. Workup largely negative including CT abdo/pelvis which showed non-specific stranding but no hemorrhage despite an INR of >8 (usually well controlled per pt/family). She was given vitamin K and fu at hematology a few days later showed INR 1.5. She eventually restarted coumadin but then developed intense nausea and vomiting treated with Zofran. Two days later she developed worsening baseline apraxia so she was brought to the [facility] ED where a repeat CT showed bilateral adrenal hemorrhage, R>L with an ongoing sub-therapeutic INR and severe hypotension refractory to IVF boluses. She also had hyponatremia but hypokalemia. There was also a low grade fever. She was treated with antibiotics and pressors followed by dexamethasone then hydrocortisone with resolution of her hypotension over night. Part of the hypotension work-up including a troponin of 19 and WMAs on echo, but she denied chest pain or SOB at any time. * Adrenal crisis- Her initial insult was likely adrenal hemorrhage, probably from an initial thrombosis and exacerbated by her high INR. She responded very well to steroids and has no obvious septic focus; pressors now off. Without cardiac intervention she also normalized making a primary cardiac event unlikely. Although her PCT was 1.8, there was no clinical evidence of infection otherwise so Zosyn dc'd 09/30 * ACS/NSTEMI- case reviewed extensively with Dr. 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 Echo 10/01 shows improved LV systolic function. Will need eventual cath to examine anatomy once H/H stable. * Hyponatremia/SIADH- sodium earl >10 in < 24 hrs but reduced with D5W. Sodium up just 2 meq in the last 2 days. * Transaminitis- likely related to shock and now resolved * APS- She is reported to have lupus anticoagulant, anti-cardiolipin antibodies , and anti-beta-2 glycoprotein antibodies with a CVA in 2012. She had been treated with fairly stable senior living coumadin. Her initial elevated INR TECHNICAL ACCOUNT MANAGER could have been a relative drop in vitamin K with a dietary change as no other obvious explanation is apparent. Since her risk for additional thrombosis is high she started UFH 09/29. The drop in Hct from 25 to 23 without hemodynamic compromise or change in clinical status or CT findings was likely within laboratory measurement. She was nonetheless transfused one unit RBC, but the UFH drip continues as it should. She is stable today and I would favor ongoing observation with UFH alone for now, even if her H/H requires additional transfusion. Will eventually resume coumadin and no role for novel anticoagulants due to insufficient data. * Altered mental status likely 2/2 severe hypotension on admission. Nearly normal and full recovery expected * Anemia: H/H low but stable from yesterday. No indication for transfusion currently * Dyspnea/tachypnea: Multiple possible causes, including pulmonary edema, atelectasis, pneumonia, anemia, PE. Improved. Oxygenation okay on room air at rest. Plan: Continue to follow sodium level off of fluid restriction. CTA of the coronaries. Beta-bianca to try to reduce heart rate. Try Cardizem or Precedex if that does not work. Continue heparin. Can probably transfer to floor. Converted to p.o. Steroids. Will try dexamethasone 0.5/0.25 daily and Florinef 0.2 daily. I have left a voice message with Dr. Al Sanchez, her coffee urn attendant, to see if he has another preference. 10/03/18 15:43 10/03/18 15:44 Subjective: Feels okay, denies pain. Strength improving Objective: Vital Signs Temp Pulse Resp BP Pulse Ox 37.1 C 88 20 116/62 95 10/03/18 04:00 10/03/18 14:22 10/03/18 14:00 10/03/18 14:22 10/03/18 14:00 Laboratory Results 10/03/18 05:25 10/03/18 05:25 10/02/18 10/03/18 10/04/18 05:59 05:59 05:59 Intake Total 2343 550 Output Total 2075 2400 500 Balance 268 -1850 -500 PT 17.7 SEC (12.0-15.0) H 09/30/18 04:47 INR 1.44 (0.83-1.16) H 09/30/18 04:47 Physical Exam - Physical Exam General Appearance: alert, no apparent distress EENT: normal ENT inspection Neck: normal inspection Respiratory: lungs clear, normal breath sounds Cardiac/Chest: regular rate, rhythm, No edema Abdomen: normal bowel sounds, non-tender, soft Skin: normal color, warm/dry Extremities: normal inspection Neuro/Psych: alert, normal mood/affect, oriented x 3 ICD10 Worksheet Patient Problems: Problems Problem Status Onset Adrenal hemorrhage Acute Adrenal insufficiency Acute Hyponatremia Acute Hypotension Acute Tachycardia Acute
[2018-10-03] MEDS ORDERED: DILTIAZEM 25 MG/5 ML VIAL IVP ONE (16:15)
[2018-10-03] MEDS ORDERED: HYDROCORTISONE 10 MG TAB PO ONE (16:15)
[2018-10-03] MEDS ORDERED: DILTIAZEM HCL/D5W 125 ML IV SCH (16:30)
--- NOTE | 2018-10-03 16:46 | SOAPPROG ---
ROCIO Progress Note Assessment/Plan: 1. Myocardial infarction - Pt presented with a NSTEMI in the setting of antiphospholipid antibody syndrome and adrenal insufficiency. The event was likely 2 to 3 days prior to admission given enzymatic findings. No history of chest, arm, neck pain at that time, however, patient does report nausea. echocardigram demonstrates a posterior wma and an EF of 45 to 50%. The etiology is not entirely clear. There are case reports of coronary thrombosis with antiphospholipid antibody syndrome. LVEF improved to 50 to 55% on 10/01. --> continue asa and metoprolol --> coronary CT angiogram 2. B adrenal hemorrhage 3. Acute adrenal insufficiency - Secondary to #2. On appropriate supplemental therapy at this time. Hemodynamics improved. 4. Anemia - Hgb has stabilized at 7.8. Will transfuse 1 unit given NSTEMI and anemia. --> Continue to follow 5. Antiphospholipid antibody syndrome - Appreciate hematology input. 10/03/18 16:44 Subjective: No chest pain No orthopnea or PND Objective: Vital Signs Temp Pulse Resp BP Pulse Ox 37.1 C 93 22 H 123/73 H 91 L 10/03/18 04:00 10/03/18 16:41 10/03/18 16:00 10/03/18 16:00 10/03/18 16:00 Laboratory Results 10/03/18 05:25 10/03/18 05:25 10/02/18 10/03/18 10/04/18 05:59 05:59 05:59 Intake Total 2343 550 Output Total 2075 2400 500 Balance 268 -1850 -500 PT 17.7 SEC (12.0-15.0) H 09/30/18 04:47 INR 1.44 (0.83-1.16) H 09/30/18 04:47 Physical Exam - Physical Exam General Appearance: alert, no apparent distress Respiratory: lungs clear Cardiac/Chest: regular rate, rhythm Extremities: No pedal edema Neuro/Psych: alert, oriented x 3 ICD10 Worksheet Patient Problems: Problems Problem Status Onset Adrenal hemorrhage Acute Adrenal insufficiency Acute Hyponatremia Acute Hypotension Acute Tachycardia Acute
[2018-10-03] MEDS: DEXMEDETOMIDINE HCL 400 MCG in NS 100 ML IV SCH (17:35)
[2018-10-03] MEDS ORDERED: predniSONE 5 MG TAB PO SCH (18:00)
[2018-10-03] MEDS ORDERED: DEXAMETHASONE 0.5 MG TAB PO SCH (21:00)
[2018-10-04] MEDS: METOPROLOL TARTRATE 50 MG TAB PO SCH ×2 (02:27→20:18)
[2018-10-04] MEDS: SENNOSIDES/DOCUSATE SODIUM TAB PO SCH ×3 (02:28→20:18)
[2018-10-04] MEDS: HEPARIN/DEXTROSE 500 ML IV SCH ×2 (05:38→20:16)
[2018-10-04] MEDS: LEVOTHYROXINE 112 MCG TAB PO SCH (05:39)
[2018-10-04] MEDS: DEXMEDETOMIDINE HCL 400 MCG in NS 100 ML IV SCH (07:36)
[2018-10-04] MEDS ORDERED: DEXAMETHASONE 0.5 MG TAB PO SCH (08:00)
[2018-10-04] MEDS: FLUDROCORTISONE ACETATE 0.1 MG TAB PO SCH (09:00)
[2018-10-04] MEDS: ASPIRIN 81 MG CHEWABLE TAB PO SCH (09:00)
[2018-10-04] MEDS ORDERED: METOPROLOL TARTRATE 50 MG TAB PO ONE (09:00)
[2018-10-04] MEDS ORDERED: FLUDROCORTISONE ACETATE 0.1 MG TAB PO SCH (09:00)
[2018-10-04] MEDS: HYDROCORTISONE 10 MG TAB PO SCH ×2 (09:00→20:19)
[2018-10-04] MEDS: FUROSEMIDE 40 MG/4 ML VIAL IVP SCH (10:36)
[2018-10-04] MEDS ORDERED: IOPAMIDOL (ISOVUE 370) 100 ML BTL IV ONE (11:13)
--- NOTE | 2018-10-04 13:04 | PDINTPN ---
Informatics Educator Progress Note Assessment/Plan: Assessment: 33 F with history of antiphospholipid syndrome and CVAs developed abdominal pain , nausea, vomiting for 1-2 days before going to [facility] 09/23. Workup largely negative including CT abdo/pelvis which showed non-specific stranding but no hemorrhage despite an INR of >8 (usually well controlled per pt/family). She was given vitamin K and fu at hematology a few days later showed INR 1.5. She eventually restarted coumadin but then developed intense nausea and vomiting treated with Zofran. Two days later she developed worsening baseline apraxia so she was brought to the [facility] ED where a repeat CT showed bilateral adrenal hemorrhage, R>L with an ongoing sub-therapeutic INR and severe hypotension refractory to IVF boluses. She also had hyponatremia but hypokalemia. There was also a low grade fever. She was treated with antibiotics and pressors followed by dexamethasone then hydrocortisone with resolution of her hypotension over night. Part of the hypotension work-up including a troponin of 19 and WMAs on echo, but she denied chest pain or SOB at any time. * Adrenal crisis- Her initial insult was likely adrenal hemorrhage, probably from an initial thrombosis and exacerbated by her high INR. She responded very well to steroids and has no obvious septic focus; pressors now off. Without cardiac intervention she also normalized making a primary cardiac event unlikely. Although her PCT was 1.8, there was no clinical evidence of infection otherwise so Zosyn dc'd 09/30 * ACS/NSTEMI- case reviewed extensively with Dr. 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 Echo 10/01 shows improved LV systolic function. CT coronary angiogram performed today, results pending * Hyponatremia/SIADH- sodium earl >10 in < 24 hrs but reduced with D5W. Sodium level now stable off fluid restriction * Transaminitis- likely related to shock and now resolved * APS- She is reported to have lupus anticoagulant, anti-cardiolipin antibodies , and anti-beta-2 glycoprotein antibodies with a CVA in 2012. She had been treated with fairly stable senior care coumadin. Her initial elevated INR TRAY SERVER could have been a relative drop in vitamin K with a dietary change as no other obvious explanation is apparent. Since her risk for additional thrombosis is high she started UFH 09/29. The drop in Hct from 25 to 23 without hemodynamic compromise or change in clinical status or CT findings was likely within laboratory measurement. She was nonetheless transfused one unit RBC, but the UFH drip continues as it should. She is stable today and I would favor ongoing observation with UFH alone for now, even if her H/H requires additional transfusion. Will eventually resume coumadin and no role for novel anticoagulants due to insufficient data. * Altered mental status likely 2/2 severe hypotension on admission. Nearly normal and full recovery expected * Anemia: H/H low but stable from yesterday. No indication for transfusion currently * Dyspnea/tachypnea: Likely due to pleural effusion with atelectasis. Oxygenation okay on nasal cannula oxygen at 2 L/minute Plan: Continue to follow sodium level off of fluid restriction. CTA of the coronaries performed, await results. Continue heparin. Continue daily IV Lasix, may be able to change to p.o. Soon Can probably transfer to floor. Converted to p.o. steroids. Will try hydrocortisone 20/10 daily and Florinef 0.1 daily at the recommendation of Dr. Al Sanchez, her bus mechanic. 10/04/18 13:06 Subjective: Feels okay, denies pain. Strength stable/improved. Objective: Vital Signs Temp Pulse Resp BP Pulse Ox 36.7 C 76 12 102/62 2 L 10/04/18 06:00 10/04/18 12:00 10/04/18 12:00 10/04/18 12:00 10/04/18 12:00 Laboratory Results 10/04/18 04:45 10/04/18 04:45 10/03/18 10/04/18 10/05/18 05:59 05:59 05:59 Intake Total 550 1769.7 Output Total 2400 1300 Balance -1850 469.7 PT 17.7 SEC (12.0-15.0) H 09/30/18 04:47 INR 1.44 (0.83-1.16) H 09/30/18 04:47 CT chest: Increased right pleural effusion (now moderate) with atelectasis. Images reviewed by me. Physical Exam - Physical Exam General Appearance: alert, no apparent distress EENT: normal ENT inspection Neck: normal inspection Respiratory: decreased breath sounds (Right base) Cardiac/Chest: regular rate, rhythm, No edema Abdomen: normal bowel sounds, non-tender Skin: normal color, warm/dry Extremities: normal inspection Neuro/Psych: alert, normal mood/affect, oriented x 3 ICD10 Worksheet Patient Problems: Problems Problem Status Onset Adrenal hemorrhage Acute Adrenal insufficiency Acute Hyponatremia Acute Hypotension Acute Tachycardia Acute
--- NOTE | 2018-10-04 13:57 | SOAPPROG ---
ROCIO Progress Note Assessment/Plan: Assessment: 1. Antiphospholipid antibody syndrome 2. History of CVA 3. Adrenal hemorrhage due to supratherapeutic INR 4. Adrenal insufficeincy due to #3 5. NSTEMI 6. Anemia CT chest did not show evidence of coronary thrombosis / embolism. Plan: - continue therapeutic unfractionated heparin. can convert to coumadin. target INR 2.5-3.5 pt will need lifelong anticoagulation. - adrenal insufficiency being treated 10/04/18 13:56 Subjective: feels well Objective: exam unchanged Vital Signs Temp Pulse Resp BP Pulse Ox 36.7 C 76 12 102/62 2 L 10/04/18 06:00 10/04/18 12:00 10/04/18 12:00 10/04/18 12:00 10/04/18 12:00 Laboratory Results 10/04/18 04:45 10/04/18 04:45 10/03/18 10/04/18 10/05/18 05:59 05:59 05:59 Intake Total 550 1769.7 Output Total 2400 1300 Balance -1850 469.7 PT 17.7 SEC (12.0-15.0) H 09/30/18 04:47 INR 1.44 (0.83-1.16) H 09/30/18 04:47 ICD10 Worksheet Patient Problems: Problems Problem Status Onset Adrenal hemorrhage Acute Adrenal insufficiency Acute Hyponatremia Acute Hypotension Acute Tachycardia Acute
--- NOTE | 2018-10-04 14:30 | HOSPPROG ---
Hospitalist Progress Note Assessment/Plan: 33 year old female with adrenal crisis likely 2/2 adrenal hemorrhage. developed nstemi and acute anemia. Adrenal crisis-etiology thought to be related to adrenal hemorrhage. BP better currently, on low dose florinef, along with hydrocortisone 30mg daily. Will need to see her telemetry technician Dr. Sanchez after discharge. -cont florinef -cont hydrocortisone ACS/NSTEMI- possibly type 2 AK secondary to hypotension, but concern due to WMA on echo. Trop peaked at 19. Not able to get rate down below 74. I discussed the plan with cardiology and they may just take her wiht her rate the way it is. Plan for cardiac catheterization today but need to get heart rate down to 60s and so she was placed on precedex gtt due to persistent elevated HR. -precedex for HR -angio hopefully today -on heparin gtt Hyponatremia- normalized at this point. monitor Anemia- ABLA. responded to PRBCs yesterday and has remained stable. monitor. Antiphospholipid syndrome- seen by Hematology today who recommends continue therapeutic heparin gtt, with transition to coumadin when able and lifelong anticoagulation. -start coumadin today -bridge with unfractionated heparin AMS- she is oriented to me today, albeit lethargic from the precedex gtt. Subjective: no pain today, sleepy from precedex but no acute complaints. Objective: Vital Signs Temp Pulse Resp BP Pulse Ox 36.7 C 94 17 100/59 L 92 10/04/18 06:00 10/04/18 14:00 10/04/18 14:00 10/04/18 14:00 10/04/18 14:00 Laboratory Results 10/04/18 04:45 10/04/18 04:45 10/03/18 10/04/18 10/05/18 05:59 05:59 05:59 Intake Total 550 1769.7 Output Total 2400 1300 Balance -1850 469.7 PT 17.7 SEC (12.0-15.0) H 09/30/18 04:47 INR 1.44 (0.83-1.16) H 09/30/18 04:47 - Physical Exam Constitutional: no apparent distress, appears nourished, not in pain Eyes: PERRL, anicteric sclera, EOMI Ears, Nose, Mouth, Throat: moist mucous membranes, hearing normal, ears appear normal, no oral mucosal ulcers Cardiovascular: regular rate and rhythym, no murmur, rub, or gallop Respiratory: no respiratory distress, no rales or rhonchi, clear to auscultation Gastrointestinal: normoactive bowel sounds, soft, non-tender abdomen, no palpable masses Genitourinary: no bladder fullness, no bladder tenderness, no renal bruits Skin: no rashes or abrasions, no fluctuance, no induration Musculoskeletal: full muscle strength, no muscle tenderness, normal joint ROM Neurologic: AAOx3, sensation intact bilaterally Psychiatric: interacting appropriately, not anxious, not encephalopathic, thought process linear Lymph, Heme, Immunologic: no cervical LAD, no supraclavicular LAD ICD10 Worksheet Patient Problems: Problems Problem Status Onset Adrenal hemorrhage Acute Adrenal insufficiency Acute Hyponatremia Acute Hypotension Acute Tachycardia Acute
--- NOTE | 2018-10-04 15:52 | ASMTCMCOM ---
CM Note CM Note Notes: 10/04/2018 Case Management Note Discussed with PT today who is recommending home care. Met w/pt, , parents, friend and in laws. Pt declines home care and feels will not be home bound upon discharge. Family in agreement and plans to transport pt to outpatient therapies. Case Management d/c poc: home with family support and follow up as directed. Case Management to follow. Date Signed: 10/04/2018 03:51 PM Electronically Signed By:Manuela Sparks RN
--- NOTE | 2018-10-04 16:01 | SOAPPROG ---
ROCIO Progress Note Assessment/Plan: 1. Myocardial infarction - Pt presented with a NSTEMI in the setting of antiphospholipid antibody syndrome and adrenal insufficiency. The event was likely 2 to 3 days prior to admission given enzymatic findings. No history of chest, arm, neck pain at that time, however, patient does report nausea. Echocardigram demonstrated a posterior wma. The etiology is not entirely clear. CTA on 10/04/18 demonstrated normal coronary arteries with out evidence of thrombus. Her EF improved from 45/50 to 50/55 to normal. ? stress myopathy. --> continue asa and metoprolol 2. B adrenal hemorrhage 3. Acute adrenal insufficiency - Secondary to #2. On appropriate supplemental therapy at this time. Hemodynamics improved. 4. Anemia - Hgb has stabilized at 7.8. 5. Antiphospholipid antibody syndrome - Appreciate hematology input. Subjective: No chest pain No orthopnea or PND Objective: Vital Signs Temp Pulse Resp BP Pulse Ox 36.7 C 94 17 100/59 L 92 10/04/18 06:00 10/04/18 14:00 10/04/18 14:00 10/04/18 14:00 10/04/18 14:00 Laboratory Results 10/04/18 04:45 10/04/18 04:45 10/03/18 10/04/18 10/05/18 05:59 05:59 05:59 Intake Total 550 1769.7 Output Total 2400 1300 Balance -1850 469.7 PT 17.7 SEC (12.0-15.0) H 09/30/18 04:47 INR 1.44 (0.83-1.16) H 09/30/18 04:47 Physical Exam - Physical Exam General Appearance: alert, no apparent distress Respiratory: other (deminished breath sounds at bases) Cardiac/Chest: regular rate, rhythm Extremities: No pedal edema ICD10 Worksheet Patient Problems: Problems Problem Status Onset Adrenal hemorrhage Acute Adrenal insufficiency Acute Hyponatremia Acute Hypotension Acute Tachycardia Acute
[2018-10-04] MEDS: WARFARIN SODIUM 5 MG TAB PO SCH (16:05)
[2018-10-05 06:07] LABS: INR 1.13 (0.83-1.16); PROTIME(PATIENT) 14.7 SEC (12.0-15.0)
[2018-10-05 06:23] LABS: PLATELET COUNT 129 10^3/uL (150-400)
[2018-10-05] MEDS: LEVOTHYROXINE 112 MCG TAB PO SCH (06:38)
[2018-10-05] MEDS: FLUDROCORTISONE ACETATE 0.1 MG TAB PO SCH (09:20)
[2018-10-05] MEDS: HYDROCORTISONE 10 MG TAB PO SCH ×2 (09:20→20:23)
[2018-10-05] MEDS: ASPIRIN 81 MG CHEWABLE TAB PO SCH (09:20)
[2018-10-05] MEDS: METOPROLOL TARTRATE 50 MG TAB PO SCH (09:22)
[2018-10-05] MEDS: SENNOSIDES/DOCUSATE SODIUM TAB PO SCH ×2 (09:22→21:04)
[2018-10-05] MEDS ORDERED: PROTOCOL POTASSIUM 1 DOSE MISC PRN (10:37)
[2018-10-05] MEDS ORDERED: POTASSIUM CL 10 MEQ TAB PO ONE ×2 (10:42→19:34)
--- NOTE | 2018-10-05 10:45 | SOAPPROG ---
SOJACINTA Progress Note Assessment/Plan: Assessment: 1. Antiphospholipid antibody syndrome 2. History of CVA 3. Adrenal hemorrhage due to supratherapeutic INR 4. Adrenal insufficeincy due to #3 5. NSTEMI 6. Anemia CT chest did not show evidence of coronary thrombosis / embolism. Plan: - pt will need to continue on heparin (either UFH or LMWH) for 48 hours *after* her INR is therapeutic (target 2.5 - 3.5). if she is otherwise stable, she can be discharged on lovenox 1 mg/kd BID and check INR in our clinic on Sunday 10/08 Will sign off at this point. please notify our service when she is being discharged so we can arrange for proper followup/ Subjective: feeling well. Objective: exam unchanged Vital Signs Temp Pulse Resp BP Pulse Ox 36.4 C 82 26 H 112/70 95 10/05/18 08:00 10/05/18 08:00 10/05/18 08:00 10/05/18 08:00 10/05/18 08:00 Laboratory Results 10/05/18 05:45 10/05/18 05:45 10/04/18 10/05/18 10/06/18 05:59 05:59 05:59 Intake Total 1769.7 960 Output Total 1300 600 Balance 469.7 360 PT 14.7 SEC (12.0-15.0) 10/05/18 05:45 INR 1.13 (0.83-1.16) 10/05/18 05:45 ICD10 Worksheet Patient Problems: Problems Problem Status Onset Adrenal hemorrhage Acute Adrenal insufficiency Acute Hyponatremia Acute Hypotension Acute Tachycardia Acute
--- NOTE | 2018-10-05 10:50 | PDINTPN ---
Accountant Systems Progress Note Assessment/Plan: Assessment: 33 F with history of antiphospholipid syndrome and CVAs developed abdominal pain , nausea, vomiting for 1-2 days before going to [facility] 09/23. Workup largely negative including CT abdo/pelvis which showed non-specific stranding but no hemorrhage despite an INR of >8 (usually well controlled per pt/family). She was given vitamin K and fu at hematology a few days later showed INR 1.5. She eventually restarted coumadin but then developed intense nausea and vomiting treated with Zofran. Two days later she developed worsening baseline apraxia so she was brought to the [facility] ED where a repeat CT showed bilateral adrenal hemorrhage, R>L with an ongoing sub-therapeutic INR and severe hypotension refractory to IVF boluses. She also had hyponatremia but hypokalemia. There was also a low grade fever. She was treated with antibiotics and pressors followed by dexamethasone then hydrocortisone with resolution of her hypotension over night. Part of the hypotension work-up including a troponin of 19 and WMAs on echo, but she denied chest pain or SOB at any time. * Adrenal crisis- Her initial insult was likely adrenal hemorrhage, probably from an initial thrombosis and exacerbated by her high INR. She responded very well to steroids and has no obvious septic focus; pressors now off. Without cardiac intervention she also normalized making a primary cardiac event unlikely. Although her PCT was 1.8, there was no clinical evidence of infection otherwise so Zosyn dc'd 09/30 * ACS/NSTEMI- case reviewed extensively with Dr. Santana- I agree that her primary event likely occurred 2-3 days LIVING ADVISOR and the risk of immediate intervention with resultant anticoagulation on 09/28 obviated any systems testing laboratory technician activity at that time (not likely the cause of her hypotension and not likely to preserve myocardium). Echo 10/01 shows improved LV systolic function. CT coronary angiogram performed today, results pending * Hyponatremia/SIADH- sodium earl >10 in < 24 hrs but reduced with D5W. Sodium level now stable off fluid restriction * Transaminitis- likely related to shock and now resolved * APS- She is reported to have lupus anticoagulant, anti-cardiolipin antibodies , and anti-beta-2 glycoprotein antibodies with a CVA in 2012. She had been treated with fairly stable retirement coumadin. Her initial elevated INR LIVING ADVISOR could have been a relative drop in vitamin K with a dietary change as no other obvious explanation is apparent. Since her risk for additional thrombosis is high she started UFH 09/29. The drop in Hct from 25 to 23 without hemodynamic compromise or change in clinical status or CT findings was likely within laboratory measurement. She was nonetheless transfused one unit RBC, but the UFH drip continues as it should. She is stable today and I would favor ongoing observation with UFH alone for now, even if her H/H requires additional transfusion. Will eventually resume coumadin and no role for novel anticoagulants due to insufficient data. * Altered mental status likely 2/2 severe hypotension on admission. Nearly normal and full recovery expected * Anemia: H/H low but stable from yesterday. No indication for transfusion currently * Dyspnea/tachypnea: Likely due to pleural effusion with atelectasis. Oxygenation okay on nasal cannula oxygen at 2 L/minute Plan: Continue to follow sodium level off of fluid restriction. Continue heparin. Change Lasix to p.o. Replace potassium Transfer to floor. Converted to p.o. steroids. Will try hydrocortisone 20/10 daily and Florinef 0.1 daily at the recommendation of Dr. Al Sanchez, her lubricating specialist. Should probably have a chemistry group and follow-up with him in 1-2 weeks. 10/05/18 10:50 Subjective: Continues to feel better and stronger. Had some stomach upset last night, now resolved. Denies dyspnea Objective: Vital Signs Temp Pulse Resp BP Pulse Ox 36.4 C 82 26 H 112/70 95 10/05/18 08:00 10/05/18 08:00 10/05/18 08:00 10/05/18 08:00 10/05/18 08:00 Laboratory Results 10/05/18 05:45 10/05/18 05:45 10/04/18 10/05/18 10/06/18 05:59 05:59 05:59 Intake Total 1769.7 960 Output Total 1300 600 Balance 469.7 360 PT 14.7 SEC (12.0-15.0) 10/05/18 05:45 INR 1.13 (0.83-1.16) 10/05/18 05:45 Chest/cardiac CT: No coronary artery occlusions. Small-moderate bilateral effusions with atelectasis. Images reviewed by me. Physical Exam - Physical Exam General Appearance: alert, no apparent distress EENT: normal ENT inspection Neck: normal inspection Respiratory: lungs clear, normal breath sounds Cardiac/Chest: regular rate, rhythm, No edema Abdomen: normal bowel sounds, non-tender Skin: normal color, warm/dry Extremities: normal inspection Neuro/Psych: alert, normal mood/affect, oriented x 3, abnormal cerebellar tests ICD10 Worksheet Patient Problems: Problems Problem Status Onset Adrenal hemorrhage Acute Adrenal insufficiency Acute Hyponatremia Acute Hypotension Acute Tachycardia Acute
[2018-10-05] MEDS: FUROSEMIDE 40 MG/4 ML VIAL IVP SCH (10:53)
[2018-10-05] MEDS: CARVEDILOL 3.125 MG TAB PO SCH ×2 (10:54→18:38)
[2018-10-05] MEDS ORDERED: FUROSEMIDE 40 MG/4 ML VIAL IVP ONE (11:15)
[2018-10-05] MEDS: HEPARIN/DEXTROSE 500 ML IV SCH (12:38)
--- NOTE | 2018-10-05 12:43 | HOSPPROG ---
Hospitalist Progress Note Assessment/Plan: 33 year old female with adrenal crisis likely 2/2 adrenal hemorrhage. developed nstemi and acute anemia. now stabilized. Adrenal crisis-etiology related to adrenal hemorrhage. BP better currently, on low dose florinef, along with hydrocortisone 30mg daily. Will need to see her concert manager Dr. Sanchez after discharge. I discussed her case with Dr. Pollock who recommended continuing hydrocortisone. -cont florinef -cont hydrocortisone 30mg daily ACS/NSTEMI- likely due to oxygen supply/demand mismatch.Discussed case with cardiology who reviewed CT angiogram performed yesterday which showed no obstructive lesions that could account for her troponin level. -continue asa and lopressor Hyponatremia- normalized at this point. monitor off fluiid restriction. Hypokalemia- repleted this am. Repeat in am. would expect hyperkalemia in setting of adrenal insuf. Anemia- ABLA. responded to PRBCs yesterday and has remained stable. monitor. Antiphospholipid syndrome- seen by Hematology who recommends continue therapeutic heparin gtt, with transition to coumadin when able and lifelong anticoagulation. -continue coumadin goal INR 2-3 -bridge with unfractionated heparin, if ready for dc in 1-2 days then transition to lovenox. Per hematology will need lovenox for 48 hours after INR therapeutic. AMS- resolved. oriented X3 eating lunch with family today. PPX- heparin gtt, SCDs. Fluids- PO Lytes- mild hypokalemia nutrition- regular diet Cor- Full Dispo- transfer out of SDU. if sodium stable in am off fluid restriction may dc to follow up [facility] endocrine, cards and pcp Subjective: strength better. eating well. No sob, cp or other complaints. Objective: Vital Signs Temp Pulse Resp BP Pulse Ox 36.8 C 90 22 H 99/68 L 94 10/05/18 11:56 10/05/18 11:56 10/05/18 11:56 10/05/18 11:56 10/05/18 11:56 Laboratory Results 10/05/18 05:45 10/05/18 05:45 10/04/18 10/05/18 10/06/18 05:59 05:59 05:59 Intake Total 1769.7 960 Output Total 1300 600 Balance 469.7 360 PT 14.7 SEC (12.0-15.0) 10/05/18 05:45 INR 1.13 (0.83-1.16) 10/05/18 05:45 - Physical Exam Constitutional: no apparent distress, appears nourished, not in pain Eyes: PERRL, anicteric sclera, EOMI Ears, Nose, Mouth, Throat: moist mucous membranes, hearing normal, ears appear normal, no oral mucosal ulcers Cardiovascular: regular rate and rhythym, no murmur, rub, or gallop Respiratory: no respiratory distress, no rales or rhonchi, clear to auscultation Gastrointestinal: normoactive bowel sounds, soft, non-tender abdomen, no palpable masses Genitourinary: no bladder fullness, no bladder tenderness, no renal bruits Skin: no rashes or abrasions, no fluctuance, no induration Musculoskeletal: full muscle strength, no muscle tenderness, normal joint ROM Neurologic: AAOx3, sensation intact bilaterally Psychiatric: interacting appropriately, not anxious, not encephalopathic, thought process linear Lymph, Heme, Immunologic: no cervical LAD, no supraclavicular LAD ICD10 Worksheet Patient Problems: Problems Problem Status Onset Adrenal hemorrhage Acute Adrenal insufficiency Acute Hyponatremia Acute Hypotension Acute Tachycardia Acute
--- NOTE | 2018-10-05 13:02 | SOAPPROG ---
ROCIO Progress Note Assessment/Plan: 1. Myocardial infarction - Pt presented with a NSTEMI in the setting of antiphospholipid antibody syndrome and adrenal insufficiency. The event was likely 2 to 3 days prior to admission given enzymatic findings. No history of chest, arm, neck pain at that time, however, patient does report nausea. Echocardigram demonstrated a posterior wma. The etiology is not entirely clear. CTA on 10/04/18 demonstrated normal coronary arteries with out evidence of thrombus. Her EF improved from 45/50 to 50/55 to normal. ? stress myopathy. --> continue asa and coreg --> Pt will follow up with her primary crop and soil technician Lan Wu (Called and discussed case with him) 2. B adrenal hemorrhage 3. Acute adrenal insufficiency - Secondary to #2. On appropriate supplemental therapy at this time. Hemodynamics improved. 4. Anemia - Hgb has stabilized at 9.5 after transfusion of 2 units PRBCs 5. 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 TTE demonstrates no significant mitral valve thickening with mild to moderate mitral regurgitation. 10/05/18 13:03 Subjective: No chest pain No orthopnea or PND Ambulating without difficulty Objective: Vital Signs Temp Pulse Resp BP Pulse Ox 36.8 C 90 22 H 99/68 L 94 10/05/18 11:56 10/05/18 11:56 10/05/18 11:56 10/05/18 11:56 10/05/18 11:56 Laboratory Results 10/05/18 05:45 10/05/18 05:45 10/04/18 10/05/18 10/06/18 05:59 05:59 05:59 Intake Total 1769.7 960 Output Total 1300 600 Balance 469.7 360 PT 14.7 SEC (12.0-15.0) 10/05/18 05:45 INR 1.13 (0.83-1.16) 10/05/18 05:45 Physical Exam - Physical Exam General Appearance: alert, no apparent distress Respiratory: other (Diminished breath sounds at bases) Cardiac/Chest: regular rate, rhythm, systolic murmur Extremities: No pedal edema Neuro/Psych: oriented x 3 ICD10 Worksheet Patient Problems: Problems Problem Status Onset Adrenal hemorrhage Acute Adrenal insufficiency Acute Hyponatremia Acute Hypotension Acute Tachycardia Acute
[2018-10-05] MEDS: WARFARIN SODIUM 5 MG TAB PO SCH (16:20)
[2018-10-06] MEDS: HEPARIN/DEXTROSE 500 ML IV SCH (04:47)
[2018-10-06 05:10] LABS: PLATELET COUNT 137 10^3/uL (150-400)
[2018-10-06 05:17] LABS: INR 1.15 (0.83-1.16); PROTIME(PATIENT) 14.9 SEC (12.0-15.0)
[2018-10-06] MEDS: ASPIRIN 81 MG CHEWABLE TAB PO SCH (08:21)
[2018-10-06] MEDS: HYDROCORTISONE 10 MG TAB PO SCH (08:21)
[2018-10-06] MEDS: FLUDROCORTISONE ACETATE 0.1 MG TAB PO SCH (08:21)
[2018-10-06] MEDS: CARVEDILOL 3.125 MG TAB PO SCH (08:21)
[2018-10-06] MEDS: LEVOTHYROXINE 112 MCG TAB PO SCH (08:21)
[2018-10-06] MEDS: SENNOSIDES/DOCUSATE SODIUM TAB PO SCH (08:22)
[2018-10-06] MEDS ORDERED: FUROSEMIDE 20 MG TAB PO SCH (09:00)
[2018-10-06 11:30] VITALS: BP 108/74
[2018-10-06] MEDS ORDERED: ENOXAPARIN 80 MG/0.8 ML SYR SC SCH ×2 (12:45→13:30)
--- NOTE | 2018-10-06 13:22 | PDDCSUM ---
Discharge Summary Discharge Summary: Patient was a 33-year-old female with history of antiphospholipid antibody syndrome on Coumadin who originally presented with altered mental status, abdominal pain, and fever. She was hypotensive, and had severe hyponatremia, and hypokalemia. Abdominal CT showed bilateral adrenal hemorrhages. She was admitted to the intensive care unit ultimately requiring pressor support, steroids and transfusion of blood. Nephrology was consulted for management of her hyponatremia which was thought to be due to SIADH. She was placed on a fluid restriction and along with steroids this corrected. Her troponin was noted to be elevated and peaked at 19. Cardiology was consulted who thought that her troponinemia was not due to occlusive coronary artery disease. An echo was obtained that showed low normal LVEF. A CT angiogram was also obtained that showed no occlusive coronary artery disease. Hematology was consulted for management of her antiphospholipid syndrome who recommended heparin drip with transition to Coumadin. Outpatient Endocrinology was consulted who recommended hydrocortisone and Florinef for management of her Justin's disease. Her sodium and potassium normalized and she was taken off fluid restriction. Discharge diagnosis Antiphospholipid syndrome Pixley's disease NSTEMI Hyponatremia Hypokalemia Shock Follow-up Endocrinology Cardiology Primary care physician New medications Florinef 0.1 mg daily Coreg 3.25 mg twice daily Lasix 20 mg daily Hydrocortisone 30 mg daily Lovenox 70 mg twice daily until INR 2-3 Coumadin goal INR 2-3 I spent over 35 min on the discharge of this patient including discharge planning in explaining discharge instructions to patient ensuring follow-up and ordering medications
--- NOTE | 2018-10-06 13:35 | HOSPPROG ---
Hospitalist Progress Note Assessment/Plan: 33 year old female with adrenal crisis likely 2/2 adrenal hemorrhage. developed nstemi and acute anemia. now stabilized. Adrenal crisis-etiology related to adrenal hemorrhage. BP better currently, on low dose florinef, along with hydrocortisone 30mg daily. Will need to see her insurance coordinator Dr. Sanchez after discharge. I discussed her case with Dr. Pollock who recommended continuing hydrocortisone. -cont florinef -cont hydrocortisone 30mg daily ACS/NSTEMI- likely due to oxygen supply/demand mismatch.Discussed case with cardiology who reviewed CT angiogram performed yesterday which showed no obstructive lesions that could account for her troponin level. -continue asa and lopressor Hyponatremia- normalized at this point. monitor off fluiid restriction. Hypokalemia- repleted this am. Repeat in am. would expect hyperkalemia in setting of adrenal insuf. Anemia- ABLA. responded to PRBCs yesterday and has remained stable. monitor. Antiphospholipid syndrome- seen by Hematology who recommends continue therapeutic heparin gtt, with transition to coumadin when able and lifelong anticoagulation. -continue coumadin goal INR 2-3 -bridge with unfractionated heparin, if ready for dc in 1-2 days then transition to lovenox. Per hematology will need lovenox for 48 hours after INR therapeutic. AMS- resolved. oriented X3 eating lunch with family today. PPX- heparin gtt, SCDs. Fluids- PO Lytes- mild hypokalemia nutrition- regular diet Cor- Full Dispo- transfer out of SDU. if sodium stable in am off fluid restriction may dc to follow up [facility] endocrine, cards and pcp Subjective: Feels great, wants to go home. Objective: Vital Signs Temp Pulse Resp BP Pulse Ox 36.8 C 78 15 108/74 95 10/06/18 07:29 10/06/18 11:29 10/06/18 11:29 10/06/18 11:29 10/06/18 11:29 Laboratory Results 10/06/18 04:48 10/06/18 04:48 10/05/18 10/06/18 10/07/18 05:59 05:59 05:59 Intake Total 960 625 Output Total 600 Balance 360 625 PT 14.9 SEC (12.0-15.0) 10/06/18 04:48 INR 1.15 (0.83-1.16) 10/06/18 04:48 - Physical Exam Constitutional: no apparent distress, appears nourished, not in pain Eyes: PERRL, anicteric sclera, EOMI Ears, Nose, Mouth, Throat: moist mucous membranes, hearing normal, ears appear normal, no oral mucosal ulcers Cardiovascular: regular rate and rhythym, no murmur, rub, or gallop Respiratory: no respiratory distress, no rales or rhonchi, clear to auscultation Gastrointestinal: normoactive bowel sounds, soft, non-tender abdomen, no palpable masses Genitourinary: no bladder fullness, no bladder tenderness, no renal bruits Skin: no rashes or abrasions, no fluctuance, no induration Musculoskeletal: full muscle strength, no muscle tenderness, normal joint ROM Neurologic: AAOx3, sensation intact bilaterally Psychiatric: interacting appropriately, not anxious, not encephalopathic, thought process linear Lymph, Heme, Immunologic: no cervical LAD, no supraclavicular LAD ICD10 Worksheet Patient Problems: Problems Problem Status Onset Adrenal hemorrhage Acute Adrenal insufficiency Acute Hyponatremia Acute Hypotension Acute Tachycardia Acute
--- NOTE | 2018-10-06 14:46 | ASMTLACE ---
LACE Length of stay for Answers: 7-13 days current admission Acuity / Level of Answers: Yes Care: Did the patient have an inpatient admission? Comorbidities - select Answers: Cerebrovascular disease all that apply (CVA, TIA, aneurysms, vasc ular dementia) Other Notes: Hypothyroid # of Emergency department Answers: 1-2 visits in the last 6 months Score: 11 Date Signed: 10/06/2018 02:45 PM Electronically Signed By:Nina Blanco RN
--- NOTE | 2018-10-06 14:46 | ASDISCHSUM ---
Discharge Information Plan Status:Home with No Needs Medically Cleared to Leave:10/05/2018 Discharge Date:10/05/2018 CM D/C Disposition:Home, Routine, Self-Care ADT D/C Disposition:Home, Routine, Self-Care Projected Discharge Date:10/05/2018 Transportation at D/C: Discharge Delay Reason: Follow-Up Date:10/05/2018 Discharge Slot: Final Diagnosis: Placement Information Patient Contact Information Contact Name:ELLYNJOSELIN Relationship: Address:[address] Work Phone: City:[place] Alternate Phone: [facility]/Zip Code:[place] [address] Email: Financial Information Financial Class:BCOP Primary Plan Desc: OUT OF STATE [facility] Primary Plan Number:[id number] Secondary Plan Desc: Secondary Plan Number: Assessment Information [facility] CM Progress Note CM Note CM Note Notes: 09/30/2018 Case Management Note Discussed pt during rounds. present during rounds. reports pt struggling with short term memory. Cog Eval ordered. Deferred CAGE, will reassess tomorrow. Pt admitted for hyponatremia, adrenal insufficiency, shock d/t renal hemorrhage, acute UT, antiphospholipid antibody syndrome on chronic AC with warfarin, AHRF, and acute metabolic encephalopathy. PT is recommending home vs home care. Will wait until closer to discharge to determine case management d/c needs. Case Management d/c poc: to be determined. Case Management to follow. Date Signed: 09/30/2018 02:37 PM Electronically Signed By:Manuela Sparks RN [facility] CM Progress Note CM Note CM Note Notes: 10/01/2018 Case Management Note Met w/pt for family meeting. Please see Palliative note for details. declines need for home care at this time. Pt parents are flying to help upon discharge and feels it's beneficial for pt to restart outpatient therapies for social interactions. Case Management agreed to reconnect with family on day of d/c to assess for home care needs at that time. Case Management d/c poc: anticipating independent with follow up as directed. Case Management to follow. Date Signed: 10/01/2018 04:53 PM Electronically Signed By:Manuela Sparks RN [facility] CM Progress Note CM Note CM Note Notes: 10/04/2018 Case Management Note Discussed with PT today who is recommending home care. Met w/pt, , parents, friend and in laws. Pt declines home care and feels will not be home bound upon discharge. Family in agreement and plans to transport pt to outpatient therapies. Case Management d/c poc: home with family support and follow up as directed. Case Management to follow. Date Signed: 10/04/2018 03:51 PM Electronically Signed By:Manuela Sparks RN Intervention Information
--- NOTE | 2018-10-06 14:48 | ASMTDCNOTE ---
Case Management Discharge Discharge Order Complete? Answers: Yes Patient to Obtain Answers: Independently Medications Transportation Arranged Answers: Family/Friends Family Notified Answers: Yes Discharge Comments Notes: Medically cleared for dc to home with family support, No current needs. Date Signed: 10/06/2018 02:47 PM Electronically Signed By:Nina Blanco RN
== END 2018-10-06 14:57 | disposition home or self-care (01) | DRG 643 ==
LOC: EDUNIT# → F2N 11:34 → F2W 10-05 16:49
PROVIDERS: ADMIT Family Medicine; ATTEND Family Medicine
PROC: 02H633Z Insertion of Infusion Device into Right Atrium, Percutaneous Approach (ICD-10-PCS; principal; 2018-09-28)
PROC: 30233N1 Transfusion of Nonautologous Red Blood Cells into Peripheral Vein, Percutaneous Approach (ICD-10-PCS; 2018-09-29)
DX: E27.1 Primary adrenocortical insufficiency (principal); I21.4 Non-ST elevation (NSTEMI) myocardial infarction; R57.8 Other shock; D68.61 Antiphospholipid syndrome; E87.1 Hypo-osmolality and hyponatremia; E87.6 Hypokalemia; E86.9 Volume depletion, unspecified; I69.391 Dysphagia following cerebral infarction; E03.9 Hypothyroidism, unspecified; Z79.01 Long term (current) use of anticoagulants; D64.9 Anemia, unspecified
CPT/HCPCS: 82435-PO; 82565-PO; 82947-PO; 83605-ER; 84132-PO; 84295-PO; 84520-PO; 85014-ER; 85520-90; 92507-GN; 92523-GN; 96374; 97110-GP; 97116-GP; 97161-GP; 97165-GO; 97530-GO; 97530-GP; 97535-GO; C1751; J0610; J1100; J1644; J1650; J1720; J1885; J1940; J2060; J2405; J2543; J2597; J3475; J3480; P9016; Q9967

== ENCOUNTER 2018-10-19 10:24 | Emergency (ER) | payer BC ==
[2018-10-19] MEDS ORDERED: NS 1,000 ML IV ONE (11:19)
--- NOTE | 2018-10-19 11:19 | EDPHY ---
H & P Smoking Status: Never smoked Time Seen by Provider: 10/19/18 11:04 HPI/ROS: Chief complaint. Right hand weakness HPI. Patient is a 33-year-old female with previous CVA with residual aphasia presents with right hand weakness and clumsiness that began at 8:00 a.m. This morning. She feels it is continuing. No headache, change in vision, difficulty speaking that is new or different. No right lower extremity weakness. She is walking okay. Denies chest pain, shortness of breath and abdominal pain currently. Apparently around 8:00 a.m. She had brief mid abdominal pain that has since resolved. Laboratory evaluation October 17 shows an INR of 2.32 and the patient is on Coumadin. She had a TSH of 33.8 ROS 10 systems were reviewed and negative with the exception of the elements mentioned in the history of present illness (Chester Cervantes) Past Medical/Surgical History: Past medical history is significant for adrenal hemorrhage, [place], CVA with residual aphasia, endocarditis, Justin disease, patent foramin ovale (Chester Cervantes) Social History: , nonsmoker, no alcohol (Chester Cervantes) Physical Exam: General Appearance: Alert well-developed female mild distress vital signs significant for heart rate 109 Eyes: Pupils equal and round no pallor or injection. ENT, Mouth: Mucous membranes are moist. Respiratory: There are no retractions, lungs are clear to auscultation. Cardiovascular: Regular rate and rhythm. Gastrointestinal: Abdomen is soft and nontender, no masses, bowel sounds normal. Neurological: Awake and alert, sensory and motor exams grossly normal. Speech is normal. Cranial nerves are normal. There is no pronator drift though maybe slightly wobbly with the right hand. [id number] are normal. Skin: Warm and dry, no rashes. Musculoskeletal: Neck is supple nontender. Extremities symmetrical, full range of motion. Psychiatric: Patient is oriented X 3, there is no agitation. (Chester Cervantes) Constitutional: Initial Vital Signs Temperature (C) 36.8 C 10/19/18 10:34 Heart Rate 109 H 10/19/18 10:34 Respiratory Rate 20 10/19/18 10:34 Blood Pressure 108/78 10/19/18 10:34 O2 Sat (%) 94 10/19/18 10:34 O2 Delivery Mode Room Air Allergies/Adverse Reactions: No Known Allergies Allergy (Verified 10/19/18 10:37) Home Medications: Medication Instructions Recorded Warfarin Sodium [Coumadin 5MG (*)] 5 mg PO HS 04/03/13 Levothyroxine [Synthroid 112 mcg 112 mcg PO DAILY06 09/28/18 (*)] Aspirin [Aspirin 81mg (*)] 81 mg PO DAILY tab.chew 10/06/18 Carvedilol [Coreg (*)] 3.125 mg PO BIDMEAL 30 Days #60 tab 10/06/18 Fludrocortisone Acetate [Florinef] 0.05 mg PO DAILY 10/19/18 Hydrocortisone [Cortef 10 mg (*)] 15 mg PO DAILY 10/19/18 Hydrocortisone [Cortef 10 mg (*)] 20 mg PO DAILY@14 10/19/18 Medical Decision Making - Diagnostics EKG Interpretation: EKG interpreted by me shows sinus tachycardia normal interval. Left axis deviation. QRS otherwise normal. There is no significant ST elevation or depression. No arrhythmia. The rate is 100 (Chester Cervantes) Imaging Results: Noncontrast head CT shows 1 cm thick subdural left cerebral convexity with slight mass effect. (Chester Cervantes) Procedures: IV normal saline, monitor (Chester Cervantes) ED Course/Re-evaluation: 15 15: Patient is signed out to me at change of shift by Dr. Cervantes. The per report, there are no beds available [facility]. The patient will be transferred to an outside facility. Please refer to Dr. Cervantes note. He has consulted with Dr. Swan (neurology), Dr. Pascal (neurosurgery), Dr. Gaytan (oncology). However due to no bed availability patient was signed out to me for transfer. The Dr. Cervantes stated the patient had an allergy to PCC and this was discontinued at his ordered. The patient has previously been to [facility]. She is also followed by neurologist at [facility]. Because of this I contacted [facility]. I spoke with Dr. Painter, who accepted the patient. NCME was activated. 1520: Neurosurgery was in the emergency department evaluating the patient. They recommended a repeat head CT. Repeat head CT was ordered. I introduced myself to the patient's family. The I explained the treatment plan at this time. I answered all their questions. 15 40: The patient returned from CT imaging. She had no new complaints. Patient was interactive and pleasant. However the patient did seem slightly confused. GENERAL: No acute distress, alert. HEENT: Eyes normal to inspection, no signs of dehydration. NECK: Normal, supple. RESPIRATORY: Clear to auscultation bilaterally, no rales, rhonchi or wheezing. CVS: Regular rate and rhythm, no rubs, murmurs, or gallops. ABDOMEN: Soft, nontender. SKIN: Normal color, no rash, warm, dry. No pallor. EXTREMITIES: No pedal edema, no joint swelling. NEURO/PSYCH: NEURO/PSYCH: Higher functions: The patient is alert. Her mood is happy. She seems to have a slightly odd affect. When I speak with her she intermittently labs. She states that she understands my questioning. Normal speech. Cranial nerves: Normal as tested. Cerebellar: Grossly intact. Peripheral exam: Normal motor exam. Normal sensation. I again discussed the plan with the family. I discussed the case with [facility] who was in the emergency department for transfer. Head CT: Please refer the dictated report. No change per Dr. Armstrong. I discussed the case and findings with Neurosurgery. I updated [facility]. I updated the family. The at the time of transfer the patient was stable. (Ester Ca) I consulted discussed the case with on-call for [facility] which is patient's regular Neurology group. She recommends head CT non con and CTA head and neck I consulted discussed case with Dr. Pascal for Neurosurgery. He recommends reversal of elevated INR by Coumadin using vitamin K and PCC I have consulted discussed case with Dr. Rollins, hospitalist who agrees to the admission We are reversing patient's Coumadin as she has an INR of 2.23 I have discussed case with Dr. Gaytan for Hematology. He recommends reversal of elevated INR by Coumadin using vitamin K and PCC At 2:55 p.m. I am notified that there are no beds in ICU or step-down unit and that the patient will have to be transferred. I have discussed this with the patient and family. They would prefer transfer to [facility]. Care was transferred to Dr. Ca at 3:05 p.m. He will help with arranging transfer At 3:10 p.m. The patient is receiving her PCC and vitamin K. She has decreased level of consciousness and having on increased difficulty following commands compared to what she had when I initially saw her. The PCC is stopped. Emergent head CT is ordered. 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 She has had previous stroke in [place]. She is on Coumadin for the anti phospholipid antibody syndrome. 3 weeks ago she had bilateral adrenal hemorrhages. She now has stroke type symptoms and is found to have an acute subdural hematoma. We have begun to reverse her Coumadin. She now is having decreased level consciousness compared to presentation. I am concerned the patient may have worsening subdural bleeding. Emergent 2nd CT head is pending (Chester Cervantes) Critical Care Time: The patient required 35 min of critical care time. This was exclusive of any unbundled procedure. This was due the patient's subdural hematoma, rechecks, consultation with Radiology, Neurosurgery, [facility], multiple discussions with the family and patient. (Ester Ca) Critical care time exclusive procedures 50 min (Chester Cervantes) Care Turn Over: Dr. Ca at 3:05 p.m. (Chester Cervantes) - Data Points Laboratory Results: Laboratory Results 10/19/18 11:10 10/19/18 11:10 Medications Given: Discontinued Medications Sodium Chloride (Ns) 1,000 mls @ 0 mls/hr IV EDNOW ONE; Wide Open PRN Reason: Protocol Stop: 10/19/18 11:20 Last Admin: 10/19/18 11:30 Dose: 1,000 mls Prothrombin Complex Concent (Human) (Kcentra) 2,500 unit in 100 mls @ 0 mls/hr IV ONCE ONE; Per Protocol PRN Reason: Protocol Stop: 10/19/18 13:37 Last Admin: 10/19/18 15:23 Dose: Not Given Phytonadione 10 mg/ Sodium (Chloride) 51 mls @ 102 mls/hr IV ONCE ONE Stop: 10/19/18 14:05 Last Admin: 10/19/18 14:48 Dose: 51 mls Ondansetron HCl (Zofran) 4 mg IVP ONCE ONE Stop: 10/19/18 15:25 Last Admin: 10/19/18 15:27 Dose: 4 mg Point of Care Test Results: Chemistry 10/19/18 12:32 POC Troponin I 0.00 ng/mL ng/mL (0.00-0.08) Departure - Departure Disposition: Acute Care Hospital [facility] Clinical Impression: Subdural hematoma Condition: Fair
[2018-10-19 11:34] LABS: PLATELET COUNT 268 10^3/uL (150-400)
[2018-10-19 11:42] LABS: INR 2.23 (0.83-1.16); PROTIME(PATIENT) 24.7 SEC (12.0-15.0)
[2018-10-19] MEDS ORDERED: IOHEXOL 350mgI/ML (OMNIPAQUE) 150 ML BTL IV ONE (12:32)
[2018-10-19] MEDS ORDERED: PHYTONADIONE 10 MG in NS 50 ML IV ONE (13:36)
[2018-10-19] MEDS ORDERED: HUMAN PROTHROMBIN COMPLX(PCC) 2,500 UNIT/100 ML VIAL IV ONE (13:36)
[2018-10-19] MEDS ORDERED: ACETAMINOPHEN 500 MG TAB ONE (15:03)
[2018-10-19] MEDS ORDERED: ONDANSETRON 4 MG/2 ML VIAL ONE (15:13)
[2018-10-19] MEDS ORDERED: ONDANSETRON 4 MG/2 ML VIAL IVP ONE (15:24)
[2018-10-19 15:27] VITALS: BP 117/75
--- NOTE | 2018-10-19 15:29 | CPEKG ---
Test Reason : OPEN Blood Pressure : / mmHG Vent. Rate : 100 BPM Atrial Rate : 101 BPM P-R Int : 138 ms QRS Dur : 067 ms QT Int : 387 ms P-R-T Axes : 032 -17 -06 degrees QTc Int : 500 ms Sinus tachycardia Borderline left axis deviation Borderline T wave abnormalities Prolonged QT interval Confirmed by Arline Cervantes ([id number]) on 10/19/2018 3:28:43 PM Referred By: ARLINE CERVANTES Confirmed By:Arline Cervantes
--- NOTE | 2018-10-20 13:54 | GCON ---
[f rep st] CONSULTATION NEUROSURGICAL CONSULTATION DATE OF CONSULTATION: 10/19/2018 CHIEF COMPLAINT: Right upper extremity weakness. HISTORY OF PRESENT ILLNESS: Ms. Alvarez is a pleasant 33-year-old female with a history of a prior CVA resulting in expressive aphasia. She also has a history of antiphospholipid antibody syndrome and is on Coumadin for that. The patient, with help of her husban who is present and has been with her the whole time, states that yesterday the patient was experiencing some difficulty sleeping and was up at approximately 1 a.m. this morning and could not fall back to sleep. She ultimately got up to shower at 6 a.m. after feeling tired and exhausted and noticed difficulty coordinating her right hand. The patient was subsequently brought to the emergency room for further evaluation when this did not improve. Currently, she is awake and alert and denies any pain or headaches. She states that her right hand has been hard to use, otherwise she has no other symptoms. Neurosurgery is consulted due to findings on CT head performed in the ED of a new, left sided subdural hematoma. PAST MEDICAL HISTORY: 1. Antiphospholipid antibody syndrome. 2. Adrenal hemorrhage. 3. Myocardial infarction. 4. Left-sided CVA resulting in expressive aphasia. 5. Endocarditis. 6. [place] disease. 7. Patent foramen ovale. SOCIAL HISTORY: The patient is . She does not smoke. She does not drink. PHYSICAL EXAM: GENERAL: Pleasant, healthy-appearing, 33-year-old female in no apparent distress. HEAD, EYES, EARS, NOSE, and THROAT: Within normal limits. EXTREMITIES: Within normal limits. NEUROLOGIC: The patient is awake, alert, and oriented x4. Cranial nerves 2-12 are intact grossly. Her speech is halting secondary to expressive aphasia. There is no facial droop. No pronator drift. Tongue is midline. Face is symmetric. 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 Left upper extremity demonstrates slight weakness in the left deltoid at 5-/5. Otherwise, she is intact in the left upper and bilateral lower extremities 5/5 throughout and sensation is grossly intact to light touch in all dermatomal distributions of the bilateral upper and lower extremities. Reflexes are 1/4 bilateral biceps and brachioradialis. There is no Box's and no clonus. LABORATORY RESULTS: White blood cell count 10.4, hemoglobin 11.4, hematocrit 37.5, platelet count 268. Sodium 137, potassium 4.1, chloride 107, carbon dioxide 21, BUN 10, creatinine 0.8. INR 2.23, PT 24.7, PTT 69.1. TSH 20.100. CT scan of the head without contrast on 10/19/2015 at 12:16 in the afternoon demonstrates an acute left-sided subdural hemorrhage with mild mass effect and evidence of acute/ongoing hemorrhage with no significant midline shift. No significant midline shift given the previously seen [id number] midline shift as a consequence of left-sided volume loss from large left MCA distribution infarct. Per the radiology report, there is stable left MCA distribution in right frontal areas of encephalomalacia/gliosis. A repeat head CT dated 2018 at 1533 hours demonstrates a stable left-sided subdural hematoma with no significant mass effect due to underlying encephalomalacia, and stable left MCA and right frontal infarcts. IMPRESSION: This is a 33-year-old female with a complicated medical history, who is on Coumadin for antiphospholipid antibody syndrome and has a prior history of a left-sided stroke resulting in expressive aphasia, who presents with right upper extremity weakness, particularly in the hand, with some slight discoordination. She has baseline expressive aphasia which is unchanged. During my examination of her, I noted that she was having some difficulty following commands which Dr. Cervnates felt was new, and perhaps a worsening change in her neurologic exam; therefore, she was for re-scanned. The repeat Head CT was stable. I did discuss the patient's neurologic exam and plan for a repeat head CT with Dr. Monsivais today. Dr. Monsivais did review the 1st CT scan and agreed with repeating the CT secondary to possible worsening neurologic status. According to the emergency room doctors, the patient was not going to be able to be admitted to the hospital and plans were put in motion to medevac her to another facility, pending the results of the 2nd head CT. If the 2nd head CT was worse, she would remain here and likely undergo surgery versus further observation, or if it was stable, she could be transferred. Since the 2nd head CT was stable, the patient was deemed stable for transfer. All this information was discussed with Dr. Monsivais, who also spoke directly with Dr. Ca regarding the above plan. /[id number]
== END 2018-10-19 16:08 | disposition short-term general hospital (02) ==
LOC: UNDOADMIN 13:54
DX: I62.00 Nontraumatic subdural hemorrhage, unspecified (principal); I69.320 Aphasia following cerebral infarction; D68.61 Antiphospholipid syndrome; E86.9 Volume depletion, unspecified; Z79.01 Long term (current) use of anticoagulants
CPT/HCPCS: 84484-ER; 96365; C9132; J2405; J3430; Q9967